=== PATIENT | female | born 1940 | race Caucasian/White ===

== ENCOUNTER 2016-06-25 12:09 | Outpatient (CLI) | payer MEDICARE, OTHER ==
[~2016-06-25] VITALS: Ht 162.6 cm; Wt 64.5 kg
--- NOTE | ~2016-06-25 | HEMODYNAMI ---
PATIENT:FERMÍN WINSLOW MEDICAL RECORD: [id number] : 44 LOCATION:[facility] ADMISSION DATE: 06/25/16 Generatedon:06/25/201615:18 Patient name: FERMÍN WINSLOW Patient #: [id number] SSN: DO B: 1940 Date of study: 06/25/2016 Page: Of Hemodynamic Procedure Report Patient Data Patient Demographics Procedure consent was obtained First Name: FERMÍN Gender: Female Last Name: GOLDY : 1940 Middle Initial: A Age: 76 year(s) Patient #: [id number] Race: Additional ID: [id number] Contact details Address: [address] [place] [address] State: [place] City: [facility] Zip code: [address] Past Medical History Allergies Allergen Reaction Date Comments Reported Other allergy 09/22/2014 Kapidex, Doxycyline Other allergy 06/25/2016 Oxycycline, Dexlansopazole, Isosorbide, Brilinta Admission Admission Data Admission Date: 06/25/2016 Admission Time: 12:09 Lab Results Lab Result Date: 06/25/2016 Lab Result Time: 0:00 Biochemistry Name Units Result Min Max Creatinine mg/dl 1.3 --(---*)-- 0.6 1.3 CBC Name Units Result Min Max Hemoglobin g/dl 14.3 --(*---)-- 13.5 17.5 Procedure Procedure Types Cath Procedure Diagnostic Procedure LHC LHC w/Coronaries Procedure Description Procedure Date Procedure Date: 06/25/2016 Procedure Start Time: 15:00 Procedure End Time: 15:18 Procedure Staff Name Function Aniket Soto MD Performing Physician Sage Aguila RT Scrub Irma Collins RN Nurse Oscar Hopkins RT Host And Hostess Jesika Harley RT Monitor Procedure Data Cath Procedure Fluoroscopy Diagnostic fluoroscopy Total fluoroscopy Time: 2.5 time: 2.5 min min Diagnostic fluoroscopy Total fluoroscopy dose: 336 dose: 336 mGy mGy Contrast Material Contrast Material Type Amount (ml) Isovue 300 61 Entry Location Entry Primary Successful Side Size Upsize Upsize Entry Closure Mares ccessful Closure Location (Fr) 1 (Fr) 2 (Fr) Remarks Device Remarks Femoral Right 5 Fr Manual vein Compression Femoral Right 5 Fr Exoseal artery Estimated blood loss: 5 ml Diagnostic catheters Device Type Used For End Catheter Placement Cordis 5Fr JL 4.0 Left Coronary Catheter (MP) Angiography Cordis 5Fr 3DRC Catheter Right Coronary (MP) Angiography Cordis 5Fr Pigtail LV Angiography Catheter (MP) Procedure Complications No complications Procedure Medications Medication Administration Route Dosage Oxygen NC 2 l/min Heparin Flush Bag added to field 2 bags (1000units/500ml NS) Lidocaine 2% added to field 20 Benadryl I.V. 50 mg Versed I.V. 1 mg Fentanyl I.V. 50 mcg Versed I.V. 1 mg Fentanyl I.V. 50 mcg Versed I.V. 1 mg Fentanyl I.V. 50 mcg Hemodynamics Rest Heart Rate: 50 (bpm) Pressure Samples Time Site Value (mmHg) Purpose Heart Use Rate(bpm) 15:11 LV 109/-1,14 EDP 53 15:12 AO 101/44(66) Pullback 51 15:12 LV 106/-1,15 Pullback 51 Gradients Valve Time Site 1 Site 2 Mean SEP/DFP Peak To Heart Use (mmHg) (sec/min) Peak Rate (mmHg) (bpm) Aortic 15:12 LV AO 24 15 5 51 106/-1,15 101/44(66) Calculations Valve P-P Mean Valve Index Valve Source Name Gradient Area Flow (cm2) Aortic 5 24 5 24 Snapshots Pre Cath Intra NCS Post Cath Vital Signs Time Heart Resp SPO2 NIBP (mmHg) Rhythm Pain Sedation Rate (ipm) (%) Status Level (bpm) 14:53:26 43 12 100 Measuring SB 0 (11) 10(A) , No pain 14:53:58 55 22 100 159/69(124) SB 0 (11) 10(A) , No pain 14:58:57 51 33 100 Measuring SB 0 (11) 10(A) , No pain 14:59:20 51 17 100 143/65(111) SB 0 (11) 10(A) , No pain 15:03:30 50 16 95 104/53(83) SB 0 (11) 9(A) , No pain 15:07:42 48 14 96 94/42(72) SB 0 (11) 9(A) , No pain 15:11:50 50 16 97 98/41(72) SB 0 (11) 9(A) , No pain 15:15:57 53 16 97 96/48(65) SB 0 (11) 9(A) , No pain Medications Time Medication Route Dose Verified Delivered Reason Notes Effec tiveness by by 14:55:08 Oxygen NC 2 Aniket Irma Per l/min Charles Collins RN physician 14:55:17 Heparin Flush added 2 Aniket Aniket used for Bag to bags Charles Soto MD procedure (1000units/500ml field NS) 14:55:27 Lidocaine 2% added 20ml Aniket Aniket used for to vial Charles Soto MD procedure field 14:55:33 Benadryl I.V. 50 mg Aniket Irma Per Charles Collins RN physician 14:57:02 Versed I.V. 1 mg Aniket Irma for Charles Collins RN sedation 14:57:08 Fentanyl I.V. 50 Aniket Irma for mcg Charles Collins RN sedation 14:59:04 Versed I.V. 1 mg Aniket Irma for Charles Collins RN sedation 14:59:07 Fentanyl I.V. 50 Aniket Irma for mcg Charles Collins RN sedation 15:00:55 Fentanyl I.V. 50 Aniket Irma for mcg Charles Collins RN sedation 15:02:08 Versed I.V. 1 mg Aniket Irma for Charles Collins RN sedation Procedure Log Time Note 14:34:01 Diagnostic Cath Status : Elective 14:34:27 Oscar Hopkins RT(R) sent for patient. Start room use. 14:34:28 Time tracking: Regular hours 14:34:32 Plan of Care:Hemodynamics will remain stable., Cardiac rhythm will remain stable., Comfort level will be maintained., Respiratory function will remain adequate., Patient/ family verbilizes understanding of procedure., Procedure tolerated without complication., Recovers from procedure without complications.. 14:34:36 Use device set Femoral Dx 14:34:37 Acist Syringe opened to sterile field. 14:34:38 Bag Decanter opened to sterile field. 14:34:38 Cardinal Cath Pack opened to sterile field. 14:34:39 Terumo 5Fr [place] Sheath opened to sterile field. 14:34:39 St Naveed 260cm J .035 wire opened to sterile field. 14:34:40 Acist Hand Control opened to sterile field. 14:34:41 Acist Manifold opened to sterile field. 14:34:41 Cordis Infinity 5Fr Multipack catheter opened to sterile field. 14:34:42 Tegaderm 4 x 4 opened to sterile field. 14:44:40 Patient received from Outpatients to CCL 1 Alert and oriented. Tansferred to table in Supine position. 14:44:43 Warm blankets applied, and nicole hugger turned on for patient comfort. 14:44:43 Correct patient and procedure confirmed by team. 14:44:44 Signed procedure consent form obtained from patient. 14:44:45 ECG and BP/O2 sat monitors applied to patient. 14:44:45 Full Disclosure recording started 14:51:36 Vital chart was started 14:53:30 Rhythm: sinus bradycardia 14:53:45 H&P Date Dictated: 06/19/2016 Within 30 days and on chart., H&P Addendum completed by physician on day of procedure. (MUST COMPLETE FOR ALL OUTPATIENTS). 14:53:47 Pre-procedure instructions explained to patient. 14:53:47 Pre-op teaching completed and patient verbalized understanding. 14:53:50 Family in waiting room. 14:53:52 Patient NPO since Midnight. 14:54:41 Patient allergic to Other allergyOxycycline, Dexlansopazole, Isosorbide, Brilinta 14:54:47 Is the patient allergic to Iodine/contrast media? No. 14:54:50 Is patient on blood thinner?No 14:54:54 ACC The patient was administered the following blood thiners within the last 24 hours: None 14:54:57 Previous problem with sedation/anesthesia? No ? 14:54:59 Snore? Yes 14:55:00 Sleep apnea? No 14:55:01 Sleep apnea? No 14:55:03 Deviated septum? No 14:55:04 Opens mouth fully? Yes 14:55:04 Sticks out tongue? Yes 14:55:06 Airway obstruction? No ? 14:55:07 Dentures? No ? 14:55:08 Oxygen 2 l/min NC was given by Irma Collins RN; Per physician; 14:55:10 Pre procedure: right dorsailis pedis pulse 2+ Normal; easily identifiable; not easily obliterated 14:55:12 Patient pain scale 0/10 ?. 14:55:17 Heparin Flush Bag (1000units/500ml NS) 2 bags added to field was given by Aniket Soto MD; used for procedure; 14:55:21 IV patent on arrival in left forearm with 0.9% NaCl at [facility]. 14:55:27 Lidocaine 2% 20ml vial added to field was given by Aniket Soto MD; used for procedure; 14:55:33 Benadryl 50 mg I.V. was given by Irma Collins RN; Per physician; 14:55:57 Lab Result : Creatinine 1.3 mg/dl 14:55:57 Lab Result : Hemoglobin 14.3 g/dl 14:56:01 Lab results completed and on chart. 14:56:03 Right groin area was prepped with chlora-prep and draped in sterile fashion 14:56:04 Alarms reviewed by R. N. 14:56:05 Sharps counted by scrub and verified by R.N. 14:56:13 Final Timeout: patient, procedure, and site verified with staff and physician. All members of the team are in agreement. 14:56:16 Right groin site verified by team. 14:56:20 Physical assessment completed. ASA score P 2 - A patient with mild systemic disease as per Aniket Soto MD. 14:56:23 Sedation plan: IV Moderate Sedation Versed, Fentanyl 14:57:02 Versed 1 mg I.V. was given by Irma Collins RN; for sedation; 14:57:08 Fentanyl 50 mcg I.V. was given by Irma Collins RN; for sedation; 14:59:04 Versed 1 mg I.V. was given by Irma Collins RN; for sedation; 14:59:07 Fentanyl 50 mcg I.V. was given by Irma Collins RN; for sedation; 14:59:34 Procedure started. 15:00:08 Local anesthetic to right femoral artery with Lidocaine 2% by Aniket Soto MD.INITIAL ACCESS ONLY 15:00:26 Zero performed for pressure channel P1 15:00:55 Fentanyl 50 mcg I.V. was given by Irma Collins RN; for sedation; 15:02:08 Versed 1 mg I.V. was given by Irma Collins RN; for sedation; 15:03:18 A 5 Fr sheath was inserted into the Right Femoral vein 15:04:44 Baseline sample Acquired. 15:05:34 Terumo 5Fr [place] Sheath opened to sterile field. 15:05:46 A 5 Fr sheath was inserted into the Right Femoral artery 15:06:29 A Cordis 5Fr JL 4.0 Catheter (MP) was advanced over the wire and used for Left Coronary Angiography. 15:07:46 Catheter removed. 15:08:15 A Cordis 5Fr 3DRC Catheter (MP) was advanced over the wire and used for Right Coronary Angiography. 15:10:42 Catheter removed. 15:10:46 A Cordis 5Fr Pigtail Catheter (MP) was advanced over the wire and used for LV Angiography. 15:11:19 LV hemodynamics recorded. 15:11:21 LV gram done using DURBIN 15:11:34 EF : 50 % 15:11:37 Injector settings: Ml/sec: 10, Volume: 20, 15:13:43 Catheter removed. 15:13:54 Cordis 5Fr Exoseal opened to sterile field. 15:14:09 Sheath removed intact; hemostasis achieved with Exoseal to the Right Femoral artery. 15:14:32 Sheath removed intact; hemostasis achieved with Manual Compression to the Right Femoral vein. 15:14:34 Procedure ended.(Physican Out) 15:14:48 Fluoroscopy time 02.50 minutes. 15:14:55 Flurop Dose total: 336 15:14:55 Fluoroscopy dose: 336 mGy 15:15:02 Contrast amount:Isovue 300 61ml. 15:15:03 Sharps counted by scrub and verified by R.N. 15:15:05 Insertion/operative site no bleeding no hematoma. 15:15:09 Post-op/insertion site Right Femoral artery dressed using a 4 x 4 and Tegaderm. 15:15:12 Post right femoral artery:stable, clean and dry 15:15:14 Post Procedure Pulses reassessed and unchanged 15:15:19 Post-procedure physical assessment completed. ASA score P 2 - A patient with mild systemic disease as per Aniket Soto MD. 15:15:21 Post procedure rhythm: unchanged. 15:15:23 Estimated blood loss: 5 ml 15:15:24 Post procedure instruction explained to patient.Patient verbalizes understanding. 15:15:24 Patient needs reinforcement of post procedure teaching. 15:15:35 Procedure Complication : No complications 15:15:39 See physician's report for complete and final results. 15:16:04 Procedure and supply charges have been captured, reviewed, submitted and are correct. 15:17:57 Vital chart was stopped 15:18:00 Report given to Outpatients. 15:18:03 Patient transfered to Outpatients with Stretcher. 15:18:14 Procedure ended. 15:18:14 Full Disclosure recording stopped 15:18:21 End room use (Document Last) Device Usage Item Name Manufacture Quantity Catalog Hospital Part Current Minimal Lo t# / Number Charge Number Stock Stock Serial# Code Acist Acist 1 01637 614127 228414 665048 20 Syringe Medical Systems Inc Bag Microtek 1 2002S 496724 38812 962239 5 Decanter Medical Inc. Cardinal Cardinal 1 [id number] 027165 62248 057423 5 Cath Pack Health Terumo Terumo 2 WOL888 449815 805959 671111 [address] [place] Sheath [address] Naveed St Naveed 1 853943 864810 117732 539230 30 260cm J .035 wire Acist Acist 1 75040 826930 267519 512762 5 Hand Medical Control Systems Inc Acist Acist 1 60760 029830 762820 186117 5 Manifold Medical Systems Inc Cordis Cardinal 1 [id number] 531945 06675 046965 30 InfinHuodongxing Health 5Fr Multipack catheter Tegaderm 3M 1 1626W 978017 951310 086863 5 4 x 4 Cordis Cardinal 1 956101 5 5Fr JL Health 4.0 Catheter (MP) Cordis Cardinal 1 284536 5 5Fr 3DRC Health Catheter (MP) Cordis Cardinal 1 082209 5 5Fr Health Pigtail Catheter (MP) Cordis Cardinal 1 EX500 179113 411084 033101 10 5Fr Health Exoseal Signature Audit Blairs Stage Time Signature Unsigned Intra-Procedure 06/25/2016 Jesika 3:18:38 PM Counts RT(R) Signatures Monitor : Jesika Signature : Counts RT Date : Time : [address] [place] [address]
[~2016-06-25 12:09] MED LIST: ALTOPREV40 MG PO; ASPIRIN 81 MG E81 MG PO; ASPIRIN325 MG PO; BRILINTA90 MG PO; CALCIUM CITRATE1 TAB PO; CELEXA40 MG PO; COREG 3.1253.125 MG PO; CYCLOBENZAPRINE10 MG PO; DEPAKOTE125 MG PO; DIOVAN160 MG PO; FLEXERIL10 MG PO; FOLATE0.4 MG PO; FOLIC ACID1 MG PO; FOSAMAX 70 MG T70 MG PO; IMDUR30 MG PO; KLONOPIN0.5 MG PO; KLONOPIN1 MG PO; LOZOL 2.5 MG T2.5 MG PO; MEDROL4 MG; MEVACOR20 MG PO; MOBIC7.5 MG PO; NEURONTIN 300300 MG PO; NITROSTAT0.4 MG SL; PAMELOR 25 MG C25 MG PO; PHENERGAN25 M1 PO; PLAVIX75 MG PO; PRAVACHOL20 MG PO; PREDNISONE10 MG PO; ULTRAM50 MG PO; VITAMIN B COMPL1 TA1 PO; ZANTAC150 MG PO
[2016-06-25 12:57] LABS: ANION GAP 12.4 mmol/L (8-16); CALCIUM 9.1 mg/dL (8.5-10.1); CARBON DIOXIDE 28.6 mmol/L (21.0-32.0); CREATININE - SERUM 1.3 mg/dL (0.6-1.3)
[2016-06-25 13:06] LABS: BASOPHILS 0.6 % (0.0-2.0); EOSINOPHILS 3.6 % (0-7); HEMATOCRIT 40.8 % (36.0-48.0); HEMOGLOBIN 14.3 g/dL (12-16); IMMATURE GRANULOCYTES 0.2 % (0-5); MCH 32.9 pg (26.0-34.0); MEAN PLATELET VOLUME 9.7 fL (7.4-10.4); MONOCYTES 5.8 % (2-11); NEUTROPHILS 59.8 % (40-80); PLATELET COUNT 194 10x3/uL (130-400); RBC 4.34 10x6/uL (4.00-5.40); RDW 13.4 % (11.5-14.5); WBC 8.9 10x3/uL (4.8-10.8)
[2016-06-25] MEDS ORDERED: BAYER CHEWABLE81 MG PO (14:06)
[2016-06-25] MEDS ORDERED: REXULTI1 MG PO (14:08)
[2016-06-25] MEDS ORDERED: CENTRUM COMPLE1 EACH PO (14:09)
[2016-06-25] MEDS ORDERED: VITAMIN B-12500 MC1 PO (14:10)
[2016-06-25] MEDS ORDERED: PROBIOTIC1 EAC1 PO (14:10)
[2016-06-25] MEDS ORDERED: LOZOL 2.5 MG T2.5 MG PO (14:11)
[2016-06-25] MEDS ORDERED: MAGNESIUM OXID500 MG PO (14:11)
[2016-06-25] MEDS ORDERED: MELATONIN 10 M1 EACH PO (14:12)
[2016-06-25] MEDS ORDERED: XANAX0.25 MG PO (14:13)
[2016-06-25] MEDS ORDERED: TESSALON PERLE100 MG PO (14:13)
[2016-06-25 14:19] VITALS: BP 146/72; Ht 162.6 cm; Wt 64.5 kg
--- NOTE | 2016-06-25 15:51 | NUR ---
VS TAKEN AND PLACED ON POSY OP SHEET
--- NOTE | 2016-06-25 18:59 | NUR ---
1745 IV DC WITH CATHER TIP INTACT
--- NOTE | 2016-07-15 15:45 | OP ---
PATIENT NAME: FERMÍN WINSLOW MEDICAL RECORD: [id number] :44 LOCATION:D.[facility] ADMISSION DATE: SURGEON: PATRICIO REGAN M.D. DATE OF OPERATION: 06/25/2016 REFERRING PHYSICIAN: Dr. Solis Maddox. PROCEDURES PERFORMED: 1. Selective coronary angiography. 2. Left heart catheterization with ventriculogram. INDICATION: A 76-year-old woman with history of coronary artery disease presents with accelerating angina. Recent stress test revealed anterior wall ischemia. EQUIPMENT USED: A 5-[place] JL4, Bryson right, pigtail catheter. TECHNIQUE: A 5-[place] sheath was inserted in retrograde fashion in the right common femoral artery. Next, selective coronary angiography was performed in standard 5-[place] Islander JL4 and Bryson right. Left heart catheterization was performed using pigtail catheter. CORONARY ANATOMY: 1. Left main: Left main trunk is moderate in caliber. It gives rise to the LAD and circumflex. There is no obstruction. 2. LAD: This vessel is moderate in caliber. It is 100% occluded beyond the origin of the first diagonal branch. This is a chronic occlusion. 3. Circumflex: This vessel is moderate in caliber. It supplies the lateral branch proximal segment. The circumflex and lateral branch have mild irregularities. 4. Right coronary artery: This vessel is large in caliber and dominant. The proximal vessel has been stented. This stent is widely patent. Distal vessel has been stented. This stent is widely patent as well. There is no evidence of any restenosis. 5. Left ventricle: Left ventricle is normal in size. The apex is mildly hypokinetic. Estimated ejection fraction is in the order 50%. IMPRESSION: 1. A 100% occlusion of the LAD, which is a chronic occlusion. 2. Widely patent stents in the right coronary artery without evidence of restenosis. RECOMMENDATIONS: At this point, we will continue with medical management. TRANSINT:[id number] Voice Confirmation ID: [id number] DOCUMENT ID: [id number] PATRICIO REGAN M.D. at 1545 CC: [id number] DICTATION DATE: 06/25/16 1520 ELECTRIC STOVE MECHANIC: 06/25/16 1540 DEP CLI 06/25/16 [place] [id number] [place] [id number]
== END 2016-06-25 18:00 | disposition home or self-care (01) ==
LOC: D.CATH 12:09
PROVIDERS: Internal Medicine Cardiovascular Disease
DX: I25.110 Atherosclerotic heart disease of native coronary artery with unstable angina pectoris (principal); I25.82 Chronic total occlusion of coronary artery; Z95.5 Presence of coronary angioplasty implant and graft

== ENCOUNTER 2017-03-28 09:00 | Outpatient (CLI) | payer MEDICARE, OTHER ==
[2016-06-25 14:19] VITALS: BMI 24.4
[~2017-03-28 09:00] MED LIST changes: +BAYER CHEWABLE81 MG PO; +CENTRUM COMPLE1 EACH PO; +MAGNESIUM OXID500 MG PO; +MELATONIN 10 M1 EACH PO; +PROBIOTIC1 EAC1 PO; +REXULTI1 MG PO; +TESSALON PERLE100 MG PO; +VITAMIN B-12500 MC1 PO; +XANAX0.25 MG PO
== END 2017-03-28 23:59 | disposition home or self-care (01) ==
LOC: D.MAMMO 09:00
DX: Z12.31 Encounter for screening mammogram for malignant neoplasm of breast (principal)

== ENCOUNTER → 2017-12-23 12:27 | Outpatient (CLI) | payer MEDICARE, OTHER ==
[2016-06-25 14:19] VITALS: BMI 24.4
== END | disposition home or self-care (01) ==
LOC: D.MRI 12:27
DX: M54.5 Low back pain (principal); M54.12 Radiculopathy, cervical region

== ENCOUNTER → 2019-02-05 12:42 | Outpatient (CLI) | payer MEDICARE, OTHER ==
[2016-06-25 14:19] VITALS: BMI 24.4
== END | disposition home or self-care (01) ==
LOC: D.HCCARDIO 12:42
PROVIDERS: ATTEND Internal Medicine Cardiovascular Disease
DX: R01.1 Cardiac murmur, unspecified (principal)

== ENCOUNTER 2019-03-03 09:00 | Outpatient (CLI) | payer MEDICARE, OTHER ==
[2016-06-25 14:19] VITALS: BMI 24.4
== END 2019-03-03 10:00 | disposition home or self-care (01) ==
LOC: D.MAMMO 09:00
PROVIDERS: ATTEND Family Medicine
DX: Z12.31 Encounter for screening mammogram for malignant neoplasm of breast (principal)

== ENCOUNTER 2019-09-24 14:38 | Inpatient (IN) | payer MEDICARE, OTHER ==
[~2019-09-24] VITALS: Ht 162.6 cm; Wt 85.1 kg
[2019-09-24 15:10] LABS: APTT 33.8 SECONDS (22.8-39.4); INR 0.96 (0.85-1.17); PROTIME 12.8 SECONDS (11.6-15.0)
[2019-09-24 15:14] LABS: BASOPHILS 0.3 % (0-2); EOSINOPHILS 1.7 % (0-7); HEMATOCRIT 31.3 % (36.0-48.0); HEMOGLOBIN 10.3 g/dL (12-16); IMMATURE GRANULOCYTES 0.5 % (0-5); LYMPHOCYTES 13.6 % (15-50); MCH 27.3 pg (26.0-34.0); MCHC 32.9 g/dL (31.0-37.0); MEAN PLATELET VOLUME 8.2 fL (7.4-10.4); MONOCYTES 5.3 % (2-11); NEUTROPHILS 78.6 % (40-80); PLATELET COUNT 536 10x3/uL (130-400); RBC 3.77 10x6/uL (4.00-5.40); RDW 13.4 % (11.5-14.5); WBC 19.6 10x3/uL (4.8-10.8)
[2019-09-24 15:27] LABS: CALC OSMOLALITY 261 mosm/kg (275-300); CALCIUM 9.4 mg/dL (8.5-10.1); CHLORIDE - SERUM 94 mmol/L (98-107); CREATININE - SERUM 0.7 mg/dL (0.6-1.3); GLUCOSE 126 mg/dL (74-106); POTASSIUM - SERUM 3.7 mmol/L (3.5-5.1); SODIUM 128 mmol/L (136-145); UREA NITROGEN 20 mg/dL (7-18); eGFR NON AFRICAN AMERICAN 86 mL/min (90-120)
[2019-09-24 15:46] LABS: ALKALINE PHOSPHATASE 90 U/L (30-120); ALT (SGPT) 21 U/L (10-68); BILIRUBIN - TOTAL 0.31 mg/dL (0.2-1.3); CREATINE KINASE 56 UL (21-215); THYROID STIMULATING HORMONE 1.94 uIU/mL (0.36-3.74)
[2019-09-24 16:09] LABS: ALBUMIN 2.7 g/dL (3.4-5.0); CKMB 1.5 U/L (0.0-3.6); MAGNESIUM - SERUM 1.8 mg/dL (1.8-2.4); TROPONIN-I < 0.017 ng/mL (0.000-0.060)
--- NOTE | 2019-09-24 19:20 | NUR ---
PT ALREADY IN ROOM AT TIME OF SHIFT CHANGE. QUICK STARTED PT DURING BEDSIDE SHIFT REPORT. REVIEWED HOME MEDS AND HISTORY. RIGHT UPPER EXT WEAKNESS WHILE RIGHT LOWER EXT ONLY SLIGHTLY WEAK. COMPLETE ASSESSMENT PER FLOW-SHEET. VITALS SIGNS STABLE. SOME HOME MEDS WERE CONTINUED BEFORE LIST COULD BE UPDATED WITH PT AND NEED TO BE RE-RECONCILED BY PHYSICIAN OR HEALTH SERVICES COORDINATOR. PT REFUSED TELEMETRY. NO OTHER NEEDS. WILL CONTINUE TO MONITOR.
[2019-09-24 20:00] VITALS: BP 136/91
[2019-09-24] MEDS ORDERED: ECOTRIN325 MG PO (22:10)
[2019-09-24] MEDS ORDERED: BACLOFEN10 MG PO (22:37)
[2019-09-24] MEDS ORDERED: LIPITOR40 MG PO (22:38)
[2019-09-25 00:10] VITALS: BMI 18.9
[2019-09-25 04:00] VITALS: BP 101/42
[2019-09-25 04:09] LABS: BILIRUBIN NEGATIVE (NEGATIVE); GLUCOSE NEGATIVE (NEGATIVE); KETONE NEGATIVE (NEGATIVE); NITRITE NEGATIVE (NEGATIVE); UROBILINOGEN NORMAL (NORMAL)
[2019-09-25 06:58] LABS: BASOPHILS 0.1 % (0-2); EOSINOPHILS 0.1 % (0-7); HEMATOCRIT 28.6 % (36.0-48.0); HEMOGLOBIN 9.2 g/dL (12-16); IMMATURE GRANULOCYTES 0.3 % (0-5); LYMPHOCYTES 7.9 % (15-50); MCH 26.8 pg (26.0-34.0); MCHC 32.2 g/dL (31.0-37.0); MCV 83.4 fL (80.0-100.0); MONOCYTES 0.8 % (2-11); NEUTROPHILS 90.8 % (40-80); PLATELET COUNT 499 10x3/uL (130-400); RBC 3.43 10x6/uL (4.00-5.40); RDW 13.4 % (11.5-14.5)
[2019-09-25 07:08] LABS: WBC 11.8 10x3/uL (4.8-10.8)
[2019-09-25 07:09] LABS: % SATURATION 3 % (15-55); IRON 12 ug/dl (35-150); TOTAL IRON BIND CAPACITY 310 ug/dl (260-445); UNSAT IRON BIND CAPACITY 298 ug/dl (150-375)
[2019-09-25 07:14] LABS: INR 0.98 (0.85-1.17)
[2019-09-25 07:53] LABS: CALCIUM 8.4 mg/dL (8.5-10.1); CHLORIDE - SERUM 94 mmol/L (98-107); CREATININE - SERUM 0.7 mg/dL (0.6-1.3); FERRITIN 10 ng/mL (3-244); GLUCOSE 152 mg/dL (74-106); MAGNESIUM - SERUM 1.8 mg/dL (1.8-2.4); PHOSPHOROUS 3.2 mg/dL (2.5-4.9); POTASSIUM - SERUM 3.4 mmol/L (3.5-5.1); PRO BNP 368 pg/mL (0-450); SODIUM 123 mmol/L (136-145); eGFR NON AFRICAN AMERICAN 86 mL/min (90-120)
[2019-09-25 07:54] LABS: CALC OSMOLALITY 251 mosm/kg (275-300); UREA NITROGEN 14 mg/dL (7-18)
--- NOTE | 2019-09-25 09:05 | NUR ---
RESTING IN BED, NO DISTRESS NOTED, STATES THAT SHE HAS NO USE OF RIGHT ARM, AND RIGHT LEG IS WEAK, ASSISTED TO BR X1
[2019-09-25 14:05] VITALS: BP 126/59
[2019-09-25 17:00] VITALS: BP 97/40
[2019-09-25 20:00] VITALS: BP 128/56
[2019-09-26] VITALS: BP 100/44
[2019-09-26 04:00] VITALS: BP 107/43
[2019-09-26 06:01] LABS: BASOPHILS 0.1 % (0-2); EOSINOPHILS 0 % (0-7); HEMATOCRIT 24.9 % (36.0-48.0); HEMOGLOBIN 7.9 g/dL (12-16); IMMATURE GRANULOCYTES 0.5 % (0-5); LYMPHOCYTES 5.7 % (15-50); MCH 26.6 pg (26.0-34.0); MCHC 31.7 g/dL (31.0-37.0); MCV 83.8 fL (80.0-100.0); MEAN PLATELET VOLUME 8.1 fL (7.4-10.4); MONOCYTES 2.6 % (2-11); NEUTROPHILS 91.1 % (40-80); PLATELET COUNT 498 10x3/uL (130-400); RBC 2.97 10x6/uL (4.00-5.40); RDW 13.5 % (11.5-14.5)
[2019-09-26 06:06] LABS: ANION GAP 11.9 mmol/L (8-16); CALCIUM 8.3 mg/dL (8.5-10.1); CREATININE - SERUM 0.8 mg/dL (0.6-1.3); PHOSPHOROUS 3.4 mg/dL (2.5-4.9); POTASSIUM - SERUM 3.9 mmol/L (3.5-5.1)
[2019-09-26 06:10] LABS: WBC 18.7 10x3/uL (4.8-10.8)
--- NOTE | 2019-09-26 08:23 | NUR ---
RESTING IN BED, NO DISTRESS NOTED, SKIN WARM AND DRY, WEAKNESS CONT TO RIGHT ARM, SL IN PLACE, CONT TO MONITOR FOR PAIN AND NEW WEAKNESS
[2019-09-26 08:26] VITALS: BP 109/49
--- NOTE | 2019-09-26 09:30 | MORECARE ---
CASE MANAGEMENT DISCHARGE SUMMARY PATIENT: FERMÍN WINSLOW UNIT: [id number] ADM DATE: 09/24/19 AGE: 79 : 42 SEX: F ROOM/BED: D.2207 AUTHOR: JESSICA RANDOLPH PHYSICIAN: REFERRING PHYSICIAN: MARYANNE DELEON MD DATE OF SERVICE: 09/26/19 Discharge Plan Patient Name: FERMÍN WINSLOW Facility: [facility]:[place] : 1940 Planned Disposition: Home Anticipated Discharge Date: Discharge Date: Expected LOS: Initial Reviewer: [email or web address] Initial Review Date: 09/24/2019 Generated: 09/26/19 10:30 am Patient Name: FERMÍN WINSLOW Page [id number] at 0930 All edits/amendments must be made on the electronic document DICTATION DATE: 09/26/19929 NURSE TECH: GEOVANNI 09/26/19929 RPT#: [id number] DC DATE: STATUS: ADM IN [facility] [address] [place] [address] END OF REPORT
--- NOTE | 2019-09-26 09:37 | MORECARE ---
CASE MANAGEMENT DISCHARGE SUMMARY PATIENT: FERMÍN WINSLOW UNIT: [id number] ADM DATE: 09/24/19 AGE: 79 : 42 SEX: F ROOM/BED: D.2207 AUTHOR: JESSICA RANDOLPH PHYSICIAN: REFERRING PHYSICIAN: MARYANNE DELEON MD DATE OF SERVICE: 09/26/19 Discharge Plan Patient Name: FERMÍN WINSLOW Facility: [facility]:[place] : 1940 Planned Disposition: Home Anticipated Discharge Date: Discharge Date: Expected LOS: Initial Reviewer: [email or web address] Initial Review Date: 09/24/2019 Generated: 09/26/19 10:37 am DCPIA - Discharge Planning Initial Assessment Updated by [email or web address]: Indiana Bautista on 09/26/19 9:31 am * Is the patient Alert and Oriented? Yes * How many steps to enter\exit or inside your home? * PCP MEHRAN * [facility] - IN [place] * Preadmission Environment Home Alone * ADLs Independent * Other Equipment SHOWER CHAIR, WALKER, CANE * List name and contact numbers for known caregivers / representatives who currently or will assist patient after discharge: JOSH WINSLOW - DAUGHTER- [phone] MISTY WINSLOW - SON - [phone] * Verbal permission to speak to the caregivers and representatives has been obtained from the patient. Yes * Community resources currently utilized None * Additional services required to return to the preadmission environment? No * Can the patient safely return to the preadmission environment? Yes * Has this patient been hospitalized within the prior 30 days at any hospital? No Last DP export: 09/26/19 8:30 am Patient Name: FERMÍN WINSLOW Page [id number] at 0937 All edits/amendments must be made on the electronic document DICTATION DATE: 09/26/19936 PATIENT CASE MANAGER: GEOVANNI 09/26/19936 RPT#: [id number] DC DATE: STATUS: ADM IN [facility] [address] [place] [address] END OF REPORT
--- NOTE | 2019-09-26 09:45 | MORECARE ---
CASE MANAGEMENT DISCHARGE SUMMARY PATIENT: FERMÍN WINSLOW UNIT: [id number] ADM DATE: 09/24/19 AGE: 79 : 42 SEX: F ROOM/BED: D.2207 AUTHOR: TOMASA,DOC PHYSICIAN: REFERRING PHYSICIAN: MARYANNE DELEON MD DATE OF SERVICE: 09/26/19 Discharge Plan Patient Name: FERMÍN WINSLOW Facility: [facility]:[place] : 1940 Planned Disposition: Home Anticipated Discharge Date: Discharge Date: Expected LOS: Initial Reviewer: [email or web address] Initial Review Date: 09/24/2019 Generated: 09/26/19 10:45 am Comments DCP- Discharge Planning Updated by [email or web address]: Indiana Bautista on 09/26/19 8:[address] LATE ENTRY 09/25/19 Patient Name: FERMÍN WINSLOW Admission Status: ER Accout number: [id number] Admission Date: 09-24-2019 : 1940 Admission Diagnosis: Attending: STELLA Current LOS: 1 Anticipated DC Date: Planned Disposition: Home Primary Insurance: MEDICARE A & B Discharge Planning Comments: CM met with patient to complete initial dc planning assessment. CM educated patient on the CM role and verbal consent given by patient to complete assessment. Patient lives at home alone where she is independent with her care. At discharge patient plans to return home and feels this is a safe discharge. CM discussed availability of home health, rehab services, and medical equipment. Patient has a walker, cane and shower chair if needed. Patient states if tumor comes back cancer she wants [facility]. STEVEN completed Patient denied known discharge needs at this time. CM will continue to follow and will assist as needed with dc plans/needs. Hospital Manager: Indiaan Bautista DCPIA - Discharge Planning Initial Assessment Updated by [email or web address]: Indiana Bautista on 09/26/19 9:31 am * Is the patient Alert and Oriented? Yes * How many steps to enter\exit or inside your home? * PCP MEHRAN * [facility] - IN [place] * Preadmission Environment Home Alone * ADLs Independent * Other Equipment SHOWER CHAIR, WALKER, CANE * List name and contact numbers for known caregivers / representatives who currently or will assist patient after discharge: JOSH WINSLOW - DAUGHTER- [phone] MISTY WINSLOW - SON - [phone] * Verbal permission to speak to the caregivers and representatives has been obtained from the patient. Yes * Community resources currently utilized None * Additional services required to return to the preadmission environment? No * Can the patient safely return to the preadmission environment? Yes * Has this patient been hospitalized within the prior 30 days at any hospital? No Last DP export: 09/26/19 8:37 am Patient Name: FERMÍN WINSLOW Page [phone] at 0945 All edits/amendments must be made on the electronic document DICTATION DATE: 09/26/19944 PUMP PRESS OPERATOR: GEOVANNI 09/26/19944 RPT#: [id number] DC DATE: STATUS: ADM IN [facility] [address] [place] [address] END OF REPORT
--- NOTE | 2019-09-26 11:22 | NUR ---
TAKEN TO CT PER W/C
[2019-09-26 13:09] VITALS: BP 157/74
[2019-09-26 16:05] VITALS: BP 111/58
--- NOTE | 2019-09-26 18:12 | NUR ---
RESTING IN BED, NO DISTRESS NOTED, CONT TO HAVE WEAKNESS TO RIGHT ARM AND SLIGHT WEAKNESS TO RIGHT LEG, CONT TO MONITOR SYMPTOMS
[2019-09-26 20:00] VITALS: BP 107/43
[2019-09-27] VITALS (10 sets, daily range): BP systolic 91–126; BP diastolic 30–61
[2019-09-27 04:57] LABS: HEMATOCRIT 21.8 % (36.0-48.0); IMMATURE GRANULOCYTES 1.5 % (0-5); MCH 26.5 pg (26.0-34.0); MCHC 31.2 g/dL (31.0-37.0); MCV 84.8 fL (80.0-100.0); MEAN PLATELET VOLUME 7.9 fL (7.4-10.4); PLATELET COUNT 488 10x3/uL (130-400); RBC 2.57 10x6/uL (4.00-5.40); RDW 13.8 % (11.5-14.5); WBC 25.5 10x3/uL (4.8-10.8)
[2019-09-27 04:59] LABS: HEMOGLOBIN 6.8 g/dL (12-16)
[2019-09-27 05:04] LABS: CALC OSMOLALITY 274 mosm/kg (275-300); CALCIUM 7.9 mg/dL (8.5-10.1); CARBON DIOXIDE 28.4 mmol/L (21.0-32.0); CHLORIDE - SERUM 101 mmol/L (98-107); CREATININE - SERUM 0.7 mg/dL (0.6-1.3); GLUCOSE 140 mg/dL (74-106); MAGNESIUM - SERUM 1.9 mg/dL (1.8-2.4); PHOSPHOROUS 2.1 mg/dL (2.5-4.9); SODIUM 133 mmol/L (136-145); UREA NITROGEN 33 mg/dL (7-18); eGFR NON AFRICAN AMERICAN 86 mL/min (90-120)
[2019-09-27 05:23] LABS: ANISOCYTOSIS 1+; LYMPHOCYTES 11 % (15-50); NEUTROPHILS 89 % (40-80); PLATELET ESTIMATE NORMAL; POIKILOCYTOSIS 1+
[2019-09-27 05:24] LABS: PLATELET MORPHOLOGY NORMAL PLT MORPH
--- NOTE | 2019-09-27 06:44 | NUR ---
CRITICAL HGB 6.8 CALLED TO KENROY OWENS APN. KENROY SAID TO CALL ONCOLOGY PHYSICIAN. PAGED DR. VALENTINE AND REPORTED CRITICAL LAB. ORDERED 1 UNIT PRBC'S TO BE TRANSFUSED NOW.
--- NOTE | 2019-09-27 08:24 | NUR ---
AWAKE AND ALERT. ORIENTED X3. NO C/O AT THIS TIME. REPORTS UNABLE TO SIGN BLOOD CONSENT AT THIS TIME. VERBAL AGREEMENT GIVEN WITH WITNESS PRESENT. LUNGS ARE CLEAR BILATERALLY, NO COUGH NOTED. SKIN IS INTACT WITHOUT REDNESS. SL TO RIGHT FOREARM IS PATENT WITHOUT REDNESS AT INSERTION SITE. DENIES NEED.S
--- NOTE | 2019-09-27 09:30 | NUR ---
UP TO BR WITH SBA. HAD LARGE SOFT DARK BLOODY STOOL. SKIN CARE PER SELF. POSITIONED IN BED FOR COMFORT.
--- NOTE | 2019-09-27 12:30 | NUR ---
SITTING UP IN BED EATING LUNCH. HAD SMALL AMOUNT OF LOOSE VERY BLACK STOOL. UP TO SHOWER WITH MIN ASSIST OF ONE. LINENS CHANGED PER STAFF.
[2019-09-27 13:06] LABS: APTT 31.8 SECONDS (22.8-39.4); INR 1.05 (0.85-1.17); PROTIME 13.6 SECONDS (11.6-15.0)
--- NOTE | 2019-09-27 13:30 | NUR ---
UP TO BR WITH ONE PERSON MIN ASSIST. C/O FEELING DIZZY. BP 106/52, O2 SAT 95% WILL MONITOR. POSITIONED IN BED FOR COMFORT.
--- NOTE | 2019-09-27 14:20 | NUR ---
TRANSFUSION OF PRBC INITIATED. VSS.
--- NOTE | 2019-09-27 14:35 | NUR ---
TRANSFUSION CONTINUES WITHOUT COMPLICATIONS. VSS. DR. TOPETE HERE TO VISIT. ANSWERED ALL OF PATIENTS QUESTIONS.
[2019-09-27 18:48] LABS: HEMATOCRIT 21.7 % (36.0-48.0)
[2019-09-27 18:57] LABS: HEMOGLOBIN 6.8 g/dL (12-16)
--- NOTE | 2019-09-27 19:24 | NUR ---
UP TO BSC AGAIN WITH MODERATE AMOUNT OF VERY DARK BLOODY STOOL. SKIN CARE PER SELF. DENIES NEEDS.
[2019-09-28] VITALS (16 sets, daily range): BP systolic 89–161; BP diastolic 39–78; Ht 162.6 cm; Wt 85.1 kg
--- NOTE | 2019-09-28 00:47 | NUR ---
CALL TO DR NDIAYE AT 0030 FOR HGB OF 6.8 CRITICAL LAB. NO CHANGE FROM [facility] AFTER ONE UNIT OF BLOOD GIVEN ON 7A-7P SHIFT. AWATTING CALL BACK.
[2019-09-28 02:18] LABS: HEMATOCRIT 16.9 % (36.0-48.0); HEMOGLOBIN 5.5 g/dL (12-16)
[2019-09-28 02:47] LABS: RBC 1.97 10x6/uL (4.00-5.40); WBC 38.5 10x3/uL (4.8-10.8)
[2019-09-28 02:48] LABS: BASOPHILS 0.4 % (0-2); EOSINOPHILS 0.2 % (0-7); IMMATURE GRANULOCYTES 7.7 % (0-5); LYMPHOCYTES 10.4 % (15-50); MCH 26.9 pg (26.0-34.0); MCHC 31.5 g/dL (31.0-37.0); MCV 85.3 fL (80.0-100.0); MEAN PLATELET VOLUME 9.7 fL (7.4-10.4); NEUTROPHILS 74.3 % (40-80); PLATELET COUNT 229 10x3/uL (130-400); RDW 13.8 % (11.5-14.5)
[2019-09-28 02:50] LABS: ANION GAP 12.2 mmol/L (8-16); CALCIUM 7.1 mg/dL (8.5-10.1); CARBON DIOXIDE 23.5 mmol/L (21.0-32.0); CREATININE - SERUM 0.8 mg/dL (0.6-1.3); MAGNESIUM - SERUM 1.8 mg/dL (1.8-2.4)
[2019-09-28 02:51] LABS: POTASSIUM - SERUM 4.7 mmol/L (3.5-5.1)
--- NOTE | 2019-09-28 03:02 | NUR ---
LAB CALLED WITH RBC 1.97, HBG 5.5, HCT 16.9. CALLED DR NDIAYE NEW ORDER TO GIVE 2 UNITS PRBC. ONIT ONE STARTED AT 7091
--- NOTE | 2019-09-28 07:14 | NUR ---
DR NDIAYE RETRUNED CALL AT 0224 WITH NEW ORDERS FOR RBC-1.97, HCT-6.9 HGB- 5.5 GIVE 2 UNITS OF PRBC. UNIT ONE STARTED AT 0245 COMPLETED AT 0515 WITH ADVERS REACTION NOTED AT THIS TIME. UNIT 2 STARTED AT 0546 RUNNING AT THIS TIME, WITH NO ADVERS REACTION NOTED AT THIS TIME.
--- NOTE | 2019-09-28 08:04 | NUR ---
PT RESTING QUIETLY IN BED. RESP EVEN AND UNLABORED. PT DENIES PAIN AT THIS TIME. PACKED RBC INFUSING AT THIS TIME @ 125ML/HR SITE WITHOUT REDNESS OR EDEMA. PT DENIES FURTHER NEEDS AT THIS TIME. VOICES BEING NPO SINCE MIDNIGHT FOR UPCOMING PROCEDURE. CL WITHIN REACH. ENCOURAGED TO CALL WITH NEEDS.
--- NOTE | 2019-09-28 17:34 | NUR ---
1701 BALLOON DIL DUODENAL 10, 11 AND 12 THEN BX.
--- NOTE | 2019-09-28 19:00 | NUR ---
PT RESTING IN BED. ALERT AND ORIENTED. NO SIGNS OF DISTRESS. BREATHING EVEN AND UNLABRED. IV SITE RT FA DRESSING CLEAN DRY AND INTACT. NO SIGNS OF INFECTION OR INFULTRATION. VITAL SIGNS STABLE. PT STATES NO NEEDS AT THIS TIME. SKIN CLEAN DRY AND INTACT. RT ARM WEAKNESS. WILL CONTINUE PLAN OF CARE. CALL LIGHT IN REACH. BED LOWERED AND LOCKED. BED RAILS UPX2.
[2019-09-28 19:03] LABS: HEMATOCRIT 34.8 % (36.0-48.0); HEMOGLOBIN 11.8 g/dL (12-16)
--- NOTE | 2019-09-28 21:00 | NUR ---
PT RESTING IN BED. EYES CLOSED. VITALS STABLE. WILL CONTINUE PLAN OF CARE. CALL LIGHT IN REACH. BED LOWERED AND LOCKED.
[2019-09-28 23:42] LABS: HEMATOCRIT 36.6 % (36.0-48.0); HEMOGLOBIN 12.8 g/dL (12-16)
[2019-09-29] VITALS (25 sets, daily range): BP systolic 121–159; BP diastolic 49–96
--- NOTE | 2019-09-29 | NUR ---
PT CALL LIGHT ON. NEEDS TO VOID. ASSISTED TO THE BSC WITH MINIMAL HELP. PT STAES SOME WEAKNESS. WILL CONTINUE PLAN OF CARE. CALL LIGHT IN REACH. BED LOWERED AND LOCKED. BED RAILS UPX1
--- NOTE | 2019-09-29 02:00 | NUR ---
PT RESTING IN BED. EYES CLOSED. NO SIGNS OF DISTRESS. BREATHING EVEN AND UNLABORED. WILL CONTINUE PLAN OF CARE. CALL LIGHT IN REACH. VITAL SIGNS STABLE,
[2019-09-29 03:48] LABS: ANION GAP 12.5 mmol/L (8-16); CALCIUM 7.7 mg/dL (8.5-10.1); CARBON DIOXIDE 22.8 mmol/L (21.0-32.0); CREATININE - SERUM 0.8 mg/dL (0.6-1.3); MAGNESIUM - SERUM 1.9 mg/dL (1.8-2.4); POTASSIUM - SERUM 4.3 mmol/L (3.5-5.1)
[2019-09-29 03:59] LABS: HEMATOCRIT 35.4 % (36.0-48.0); HEMOGLOBIN 12.3 g/dL (12-16); MCH 29.1 pg (26.0-34.0); MCHC 34.7 g/dL (31.0-37.0); MCV 83.7 fL (80.0-100.0); MEAN PLATELET VOLUME 8.5 fL (7.4-10.4); PLATELET COUNT 228 10x3/uL (130-400); RBC 4.23 10x6/uL (4.00-5.40); RDW 15.6 % (11.5-14.5); WBC 37.1 10x3/uL (4.8-10.8)
--- NOTE | 2019-09-29 04:00 | NUR ---
PT RESTING IN BED. EYES CLOSED. NO SIGNS OF DISTRESS. WILL CONITNUE PLAN OF CARE. CALL LIGHT IN REACH.
[2019-09-29 04:36] LABS: LYMPHOCYTES 13 % (15-50); MONOCYTES 2 % (2-11); NEUTROPHILS 85 % (40-80); PLATELET ESTIMATE NORMAL
--- NOTE | 2019-09-29 06:00 | NUR ---
I have reviewed this patient and I concur with the Shift Assessment completed by the Licensed Practical Nurse today this shift.
--- NOTE | 2019-09-29 06:18 | NUR ---
PT RESTING IN BED. EYES CLOSED. NO SIGNS OF DISTRESS. BREATHING EVEN AND UNLABORED. WILL CONTINUE PLAN OF CARE. VITAL SIGNS STABLE.
--- NOTE | 2019-09-29 07:00 | NUR ---
SLEEPING AROUSABLE TO VERBAL STIMULI, VSS, DENIES PAIN, O2 VIA RA, ASSISTED WITH REPOSITONING, CALL LIGHT IN REACH, NO OTHER NEEDS AT THIS TIME
--- NOTE | 2019-09-29 08:42 | NUR ---
PC TO SPECIALS, SPOKE WITH GEOVANNY RE: CONFIRMING IF MD WILL DO PENDING BX TODAY, SHE WILL SPEAK WITH RADIOLOGIST AND CALL BACK WITH INFO
--- NOTE | 2019-09-29 09:54 | NUR ---
Nutrition follow-up: Pt continues clear liquids until all testing done s/p EGD with balloon dilitation / Labs reviewed Will need nutrition support started soon if diet unable to resume. RDN following.
--- NOTE | 2019-09-29 10:19 | NUR ---
TO SPECIALS VIA BED, AAO, FOR PENDING BX OF CHEST/LUNG WITH DR CUNHA,
--- NOTE | 2019-09-29 11:00 | NUR ---
BACK FROM SPECIALS, DROWSY, AROUSES TO VERBAL STIMULI, RECONNECTED TO ICU MONITORS, VSS, DENIES ANY PAIN, INCISION COVERED WITH GAUZE AND OPSITE, NO HEMATOMA NOTED, DRESSING CDI, NO OTHER CHANGES FROM PREVIOUS ASSESSMENT
--- NOTE | 2019-09-29 14:31 | NUR ---
SPUTUM SPECIMEN CILLECTED AND TAKEN TO LAB
--- NOTE | 2019-09-29 14:37 | NUR ---
CHG BATH COMPLETED, TOLERATED WITHOUT DIFFICULTY
[2019-09-29 14:54] LABS: HEMATOCRIT 37.8 % (36.0-48.0); HEMOGLOBIN 12.8 g/dL (12-16)
--- NOTE | 2019-09-29 16:50 | NUR ---
CALLED TO BEDSIDE, RIGHT FA PIV SIGHT HURTING, SIGHT CD, CHANGED NS IVF WITH SECONDARY VANC INFUSING, AND PROTONIX DRIP TRANSFERRED TO LEFT FA 20G PIV, DC'D RIGHT FA PIV WITHOUT DIFFICULTY, GAUZE AND BANDAGE DRESSING APPLIED
--- NOTE | 2019-09-29 17:05 | NUR ---
REPORT CALLED TO ALANNAH ON MED SURG PENDING TRANSFER TO 2227, 1710 DINNER TRAY TO BEDSIDE, ASSIST WITH SET UP, INDEPENDENT WITH EATING,
--- NOTE | 2019-09-29 18:10 | NUR ---
TRANSFERRED VIA BED TO 2227, AAO, NO SIGNS OF DISTRESS, ADELINE NURSE AT BEDSIDE,
--- NOTE | 2019-09-29 18:18 | NUR ---
JUST ARRIVED TO FLOOR FOR ICU AWAKE AND ALERT. RESP EVEN AND UNLABORED WITH NO DISTRESS NOTED. CAN EXPRESS NEEDS AND WANTS. NO C/O NOTED OR VOICED. C/L IN REACH AT BEDSIDE.
--- NOTE | 2019-09-29 19:30 | NUR ---
PATIENT RESTING IN BED WITH NO S/S OF DISTRESS. ASSISTED PATIENT TO AND FROM RR. PATIENT VOIDED. PATIENT DENIES OTHER NEEDS AT THIS TIME. BED IN LOWEST POSITION AND CALL LIGHT WITHIN REACH. ENCOURAGED THE PATIENT TO CALL IF SHE HAS NEEDS. WILL CONTINUE TO MONITOR.
--- NOTE | 2019-09-29 19:47 | NUR ---
PATIENT REQUESTED KLONOPIN FOR ANXIETY. WILL ADMINISTER MED PER ORDERS.
--- NOTE | 2019-09-29 22:16 | NUR ---
ADMINISTERED MEDS PER ORDERS AND ASSISTED PATIENT REPOSITIONING IN BED. PATIENT DENIES OTHER NEEDS AT THIS TIME. BED IN LOWEST POSITION AND CALL LIGHT WITHIN REACH.
[2019-09-29 23:32] LABS: HEMATOCRIT 35.2 % (36.0-48.0); HEMOGLOBIN 12.3 g/dL (12-16)
[2019-09-30 01:49] VITALS: BP 147/68
[2019-09-30 06:01] VITALS: BP 155/68
[2019-09-30 07:13] LABS: HEMATOCRIT 37.7 % (36.0-48.0); HEMOGLOBIN 12.5 g/dL (12-16)
[2019-09-30 09:37] VITALS: BP 176/61
--- NOTE | 2019-09-30 10:03 | NUR ---
PT ALERT X 4 BREATH SOUNDS CLEAR BILAT. TELEMETRY IN PLACE. IV TO LEFT FOREARM PATENT, DRESSING CDI. NO USE OF RIGHT ARM. ASSISTED PT TO RESTROOM, HAD BM. PT REPORTING NO PAIN AT THIS TIME. BED LOW, CALL LIGHT IN REACH. NO OTHER NEEDS AT THIS TIME.
[2019-09-30 13:42] VITALS: BP 156/63
[2019-09-30 17:16] VITALS: BP 141/86
[2019-09-30 20:00] VITALS: BP 157/55
[2019-10-01] VITALS: BP 150/60
[2019-10-01 04:00] VITALS: BP 154/63
[2019-10-01 04:53] LABS: BASOPHILS 0.1 % (0-2); EOSINOPHILS 0 % (0-7); HEMATOCRIT 37.3 % (36.0-48.0); HEMOGLOBIN 12.6 g/dL (12-16); MCH 29.4 pg (26.0-34.0); MCHC 33.8 g/dL (31.0-37.0); MCV 87.1 fL (80.0-100.0); MEAN PLATELET VOLUME 8.4 fL (7.4-10.4); MONOCYTES 5.5 % (2-11); NEUTROPHILS 85.4 % (40-80); PLATELET COUNT 251 10x3/uL (130-400); RBC 4.28 10x6/uL (4.00-5.40); RDW 17.8 % (11.5-14.5); WBC 34.4 10x3/uL (4.8-10.8)
[2019-10-01 05:03] LABS: ANION GAP 13.7 mmol/L (8-16); CALCIUM 7.7 mg/dL (8.5-10.1); CARBON DIOXIDE 21.4 mmol/L (21.0-32.0); CREATININE - SERUM 0.9 mg/dL (0.6-1.3); POTASSIUM - SERUM 4.1 mmol/L (3.5-5.1)
--- NOTE | 2019-10-01 08:36 | NUR ---
SHE IS ASKING FOR SOMETHING FOR DEPRESSION, SHE IS ALREADY ON SOMETHING. SHE STATS SHE NEEDS SOMETHING MORE.
[2019-10-01 09:38] VITALS: BP 112/72
--- NOTE | 2019-10-01 12:57 | MORECARE ---
CASE MANAGEMENT DISCHARGE SUMMARY PATIENT: FERMÍN WINSLOW UNIT: [id number] ADM DATE: 09/24/19 AGE: 79 : 42 SEX: F ROOM/BED: D.2228 AUTHOR: TOMASA,DOC PHYSICIAN: REFERRING PHYSICIAN: MARYANNE DELEON MD DATE OF SERVICE: 10/01/19 Discharge Plan Patient Name: FERMÍN WINSLOW Facility: [facility]:[place] : 1940 Planned Disposition: Home Anticipated Discharge Date: Discharge Date: Expected LOS: Initial Reviewer: [email or web address] Initial Review Date: 09/24/2019 Generated: 10/01/19 1:56 pm Comments DCP- Discharge Planning Updated by [email or web address]: Laquita Lane on 10/01/19 11:[address] Received a call from patient's DIL, Lindsey Rahman. Lindsey states that she had brought a packet of living will and POA and needs it notorized. I called and spoke to Jody and she states she will have Heidy see the patient today. CM will continue to follow and assist with discharge planning/needs. Lindsey Rahman - DIL - [phone] DCP- Discharge Planning Updated by [email or web address]: Indiana Bautista on 09/26/19 8:[address] LATE ENTRY 09/25/19 Patient Name: FERMÍN WINSLOW Admission Status: ER Accout number: [id number] Admission Date: 09-24-2019 : 1940 Admission Diagnosis: Attending: STELLA Current LOS: 1 Anticipated DC Date: Planned Disposition: Home Primary Insurance: MEDICARE A & B Discharge Planning Comments: CM met with patient to complete initial dc planning assessment. CM educated patient on the CM role and verbal consent given by patient to complete assessment. Patient lives at home alone where she is independent with her care. At discharge patient plans to return home and feels this is a safe discharge. CM discussed availability of home health, rehab services, and medical equipment. Patient has a walker, cane and shower chair if needed. Patient states if tumor comes back cancer she wants [facility]. STEVEN completed Patient denied known discharge needs at this time. CM will continue to follow and will assist as needed with dc plans/needs. Top Lift Compresser: Indiana Bautista DCPIA - Discharge Planning Initial Assessment Updated by [email or web address]: Indiana Bautista on 09/26/19 9:31 am * Is the patient Alert and Oriented? Yes * How many steps to enter\exit or inside your home? * PCP MEHRAN * [facility] - IN [place] * Preadmission Environment Home Alone * ADLs Independent * Other Equipment SHOWER CHAIR, WALKER, CANE * List name and contact numbers for known caregivers / representatives who currently or will assist patient after discharge: JOSH WINSLOW - DAUGHTER- [phone] MISTY WINSLOW - SON - [phone] * Verbal permission to speak to the caregivers and representatives has been obtained from the patient. Yes * Community resources currently utilized None * Additional services required to return to the preadmission environment? No * Can the patient safely return to the preadmission environment? Yes * Has this patient been hospitalized within the prior 30 days at any hospital? No Last DP export: 09/26/19 8:46 am Patient Name: FERMÍN WINSLOW Page [id number] at 1257 All edits/amendments must be made on the electronic document DICTATION DATE: 10/01/191255 BODY BUILDER: GEOVANNI 10/01/191255 RPT#: [id number] DC DATE: STATUS: ADM IN [facility] [address] [place] [address] END OF REPORT
[2019-10-01 13:06] VITALS: BP 129/58
[2019-10-01 16:28] VITALS: BP 153/66
[2019-10-01 20:00] VITALS: BP 131/87
[2019-10-02] VITALS: BP 121/78
[2019-10-02 04:00] VITALS: BP 125/82
[2019-10-02 05:41] LABS: BASOPHILS 0.1 % (0-2); EOSINOPHILS 0.1 % (0-7); HEMATOCRIT 35.9 % (36.0-48.0); HEMOGLOBIN 11.6 g/dL (12-16); IMMATURE GRANULOCYTES 3.7 % (0-5); LYMPHOCYTES 3.9 % (15-50); MCH 28.6 pg (26.0-34.0); MCHC 32.3 g/dL (31.0-37.0); MCV 88.4 fL (80.0-100.0); MEAN PLATELET VOLUME 8.6 fL (7.4-10.4); MONOCYTES 5.1 % (2-11); NEUTROPHILS 87.1 % (40-80); PLATELET COUNT 264 10x3/uL (130-400); RBC 4.06 10x6/uL (4.00-5.40); WBC 31.1 10x3/uL (4.8-10.8)
[2019-10-02 05:44] LABS: ANION GAP 10.8 mmol/L (8-16); CALCIUM 7.5 mg/dL (8.5-10.1); CARBON DIOXIDE 23.3 mmol/L (21.0-32.0); CREATININE - SERUM 0.8 mg/dL (0.6-1.3); POTASSIUM - SERUM 4.1 mmol/L (3.5-5.1)
--- NOTE | 2019-10-02 10:23 | NUR ---
PT ALERT X 4. BREATH SOUNDS CLEAR BILAT. IV TO LEFT FOREARM, PATENT, DRESSING CDI. TELEMETRY IN PLACE. PT REPORTING PAIN OF 3/10, WILL CONTINUE TO MONITOR. BED LOW, CALL LIGHT IN REACH. NO OTHER NEEDS AT THIS TIME.
[2019-10-02 14:18] VITALS: BP 118/74
--- NOTE | 2019-10-02 19:15 | NUR ---
PATIENT IS ALERT AND ORIENTED. CURRENTLY HAS AZITHROMYCIN INFUSING TO THE LEFT FOREARM. WEAKNESS IN THE RIGHT UPPER EXTREMETY AND LOWER EXTREMETY. PATIENT ABLE TO AMBULATE TO BATHROOM WITH ASSISTANCE. VOIDED WITH NO PROBLEMS AND RETURNED TO BED SAFELY. DENIES PAIN AT THIS TIME. REQUESTS KLONOPIN WITH HS MEDICATIONS. BED ALARM IS ON. DENIES FURTHER NEEDS. CPOC.
[2019-10-02 20:00] VITALS: BP 96/69
--- NOTE | 2019-10-02 20:56 | NUR ---
ADMINISTERED HS MEDICATIONS PER ORDER. DENIES FURTHER NEEDS AT THIS TIME. CPOC.
--- NOTE | 2019-10-02 23:38 | NUR ---
ASSISTED PATIENT TO THE BATHROOM. RETURNED TO BED SAFELY. BED ALARM ON.
--- NOTE | 2019-10-02 23:44 | NUR ---
I have reviewed this patient and I concur with the Shift Assessment completed by the Licensed Practical Nurse today this shift.
[2019-10-03] VITALS: BP 124/57
[2019-10-03 04:00] VITALS: BP 145/59
[2019-10-03 05:35] LABS: BASOPHILS 0.1 % (0-2); EOSINOPHILS 0.1 % (0-7); HEMATOCRIT 34.1 % (36.0-48.0); HEMOGLOBIN 11.3 g/dL (12-16); IMMATURE GRANULOCYTES 3.3 % (0-5); MCHC 33.1 g/dL (31.0-37.0); MCV 87.7 fL (80.0-100.0); MEAN PLATELET VOLUME 8.4 fL (7.4-10.4); MONOCYTES 6.1 % (2-11); NEUTROPHILS 86.4 % (40-80); PLATELET COUNT 254 10x3/uL (130-400); RBC 3.89 10x6/uL (4.00-5.40); RDW 17.8 % (11.5-14.5); WBC 31.4 10x3/uL (4.8-10.8)
[2019-10-03 05:49] LABS: ANION GAP 12.2 mmol/L (8-16); CALCIUM 7.4 mg/dL (8.5-10.1); CARBON DIOXIDE 26.1 mmol/L (21.0-32.0); CREATININE - SERUM 0.8 mg/dL (0.6-1.3); POTASSIUM - SERUM 4.3 mmol/L (3.5-5.1)
[2019-10-03 10:42] VITALS: BP 141/84
--- NOTE | 2019-10-03 13:21 | NUR ---
PT ALERT X 4. BREATH SOUNDS CLEAR BILAT. WEAKNESS OF LEFT SIDE. TELEMETRY IN PLACE. IV TO LEFT HAND, SALINE LOCKED. PT REPORTING NO PAIN AT THIS TIME. BED LOW, CALL LIGHT IN REACH. NO OTHER NEEDS AT THIS TIME.
--- NOTE | 2019-10-03 21:30 | NUR ---
HS MEDICATIONS GIVEN TO INCLUDE KLONOPIN AND LUNESTA PER PRN ORDERS, PER REQUEST FOR ANXIETY AND SLEEP.
[2019-10-03 22:30] VITALS: BP 127/47
[2019-10-04] VITALS (18 sets, daily range): BP systolic 94–159; BP diastolic 45–80
--- NOTE | 2019-10-04 00:22 | NUR ---
PT DECLINED DECADRON THIS DOSE, IT KEEPS HER AWAKE AND SHE WANTS TO SLEEP.
[2019-10-04 05:19] LABS: CALCIUM 7.2 mg/dL (8.5-10.1); CREATININE - SERUM 0.8 mg/dL (0.6-1.3)
[2019-10-04 05:21] LABS: HEMATOCRIT 31.6 % (36.0-48.0); HEMOGLOBIN 10.3 g/dL (12-16); MCH 28.8 pg (26.0-34.0); MCHC 32.6 g/dL (31.0-37.0); MCV 88.3 fL (80.0-100.0); MEAN PLATELET VOLUME 8.6 fL (7.4-10.4); PLATELET COUNT 292 10x3/uL (130-400); RBC 3.58 10x6/uL (4.00-5.40); RDW 17.3 % (11.5-14.5); WBC 32.7 10x3/uL (4.8-10.8)
--- NOTE | 2019-10-04 06:22 | NUR ---
HIBACLENS BATH PERFORMED. ALL LINENS AND GOWN CHANGED.
--- NOTE | 2019-10-04 06:50 | NUR ---
ASSESSMENT PER FLOW SHEET. PATIENT IS WITHOUT DISTRESS. ASSIST TO BATHROOM AND BACK TO BED. NPO FOR SURGRY TODAY.
--- NOTE | 2019-10-04 07:33 | NUR ---
PREMEDS ORDERED. TO OR VIA BED
--- NOTE | 2019-10-04 07:33 | NUR ---
PATIENT DOES NOT WANT FAMILY CALLED. SHE SAID IT IS TO EARLY TO CALL THEM. PATIENT STATES SHE SPOKE WITH THEM LAST NIGHT.
[2019-10-04 09:42] LABS: LYMPHOCYTES 5 % (15-50); MONOCYTES 18 % (2-11); NEUTROPHILS 74 % (40-80); PLATELET ESTIMATE NORMAL
--- NOTE | 2019-10-04 10:35 | NUR ---
PT IN SURGERY NO TX GIVEN
--- NOTE | 2019-10-04 10:56 | NUR ---
PATIENT PLACED IN NEON ALL AREAS PADDED SECURED WITH NO IMPINGEMENTS, DR ROGERS PRESENT AND ASSISTING ON POSITION, NAVIGATION SET UP AND CALIBRATED PER JOEL EUBANKS.
--- NOTE | 2019-10-04 13:15 | NUR ---
SENSATIONS INTACT TO ALL EXTREMITIES HOWEVER PATIENT IS UNABLE TO MOVE RT ARM OR LEG. PATIENT REPORTS RT SIDE PARALYSIS ONSET X1 MONTH.
--- NOTE | 2019-10-04 14:00 | NUR ---
RECIEVED PT FROM RECOVERY ROOM. VOICES C/O DRESSING BEING TIGHT.
--- NOTE | 2019-10-04 19:00 | NUR ---
SHIFT ASSESSMENT COMPLETED. PT CARE ASSUMED. MONITORS ON AND WORKING,VITALS STABLE, PT AWAKE AND ALERT, NEURO CHECKS COMPLETED. ART LINE WITH GOOD WAVE FORM, WRIST PROTECTOR ON TO RT RADIAL. CALL LIGHT WITHIN REACH, SEE FLOW SHEET FOR FURTHER DETAILS. WILL CONTINUE TO OBSERVE.
--- NOTE | 2019-10-04 23:00 | NUR ---
PT TURNED AND REPOSITIONED FOR COMFORT, MONITORS ON AND WORKING, VITALS STABLE, PT AWAKE AND ALERT, CALL LIGHT WITHIN REACH, SEE FLOW SHEET FOR FURTHER DETAILS. WILL CONTINUE TO OBSERVE.
[2019-10-05] VITALS (24 sets, daily range): BP systolic 105–136; BP diastolic 40–80
--- NOTE | 2019-10-05 01:00 | NUR ---
PT LYING IN BED RESTING, MONITORS ON AND WORKING, VITALS STABLE. CALL LIGHT WITHIN REACH, WILL CONTINUE TO OBSERVE.
--- NOTE | 2019-10-05 03:00 | NUR ---
PT TURNED AND REPOSITIONED FOR COMFORT, MONITORS ON AND WORKING, VITALS STABLE. SEE FLOW SHEET FOR FURTHER DETIALS. WILL CONTINUE TO OBSERVE.
[2019-10-05 05:19] LABS: BASOPHILS 0.1 % (0-2); EOSINOPHILS 0.3 % (0-7); HEMATOCRIT 30.6 % (36.0-48.0); HEMOGLOBIN 9.8 g/dL (12-16); IMMATURE GRANULOCYTES 1.9 % (0-5); LYMPHOCYTES 3.1 % (15-50); MCH 28.8 pg (26.0-34.0); MEAN PLATELET VOLUME 8.5 fL (7.4-10.4); MONOCYTES 6.1 % (2-11); NEUTROPHILS 88.5 % (40-80); PLATELET COUNT 280 10x3/uL (130-400); RDW 17.5 % (11.5-14.5); WBC 38.2 10x3/uL (4.8-10.8)
[2019-10-05 05:23] LABS: CALC OSMOLALITY 263 mosm/kg (275-300); CALCIUM 7.6 mg/dL (8.5-10.1); CARBON DIOXIDE 27.7 mmol/L (21.0-32.0); CHLORIDE - SERUM 98 mmol/L (98-107); CREATININE - SERUM 0.6 mg/dL (0.6-1.3); GLUCOSE 80 mg/dL (74-106); POTASSIUM - SERUM 4.5 mmol/L (3.5-5.1); SODIUM 130 mmol/L (136-145); UREA NITROGEN 25 mg/dL (7-18); eGFR NON AFRICAN AMERICAN > 90 mL/min (90-120)
--- NOTE | 2019-10-05 07:31 | NUR ---
Nutrition follow-up: Pt s/p craniotomy; remains NPO PO intake before surgery poor Labs reviewed Wt: 109# Recommend starting nutrition support due to pts poor po intake. ProcalAmine PPN @ 75 ml/hr would provide some nutrition. RDN following.
--- NOTE | 2019-10-05 14:37 | NUR ---
OT NOTE: ATTEMPTED TO POSITION PATIENT FOR SUPINE TO SIT WITH OTR. HOWEVER, PT BECAME NAUSEOUS AND EYES FIXATED. NURSING NOTIFIED. NURSING NOTIFIED KEN FREDERICK. PLATA/OTR ATTEMPTED TO ORIENT PATIENT TO TIME AND PLACE. ASSISTED PATIENT WITH FACIAL HYGIENE AFTER EPISODE OF NAUSEA. 1130-56 THANK YOU,SHERLYN GORE
--- NOTE | 2019-10-05 14:59 | NUR ---
OT NOTE: ATTEMPTED EVALUATION HOWEVER, NURSING WAS ABLE TO REMOVE SOME LINES AND HER CATHETER TO ALLOW FOR EASIER MOVEMENT FOR PT. BEGAN EVALUATING HER ROM AND MOVEMENT IN R SIDE. PT WAS ALERT AND ORIENTED.. ABLE TO PROVIDE INFORMATION ON PLOF. WAITED FOR SEVERAL MIN, HOWEVER, AFTER NURSING REMOVED LINE FROM ARTERY, IT WAS STILL BLEEDING, SO RETURNED APPROX 30 MIN LATER. UPON ENTERING ROOM, PT WAS EXTREMELY LETHARGIC.. WOULD AROUSE FOR JUST A MOMENT AND THEN RIGHT BACK TO SLEEP. CONTINUALLY ATTEMPTING TO AROUSE, THEN PT LEANED FORWARD AND BEGAN VOMITTING. PT THEN BECAME SLOW TO RESPOND; WAS NOT ANSWERING QUESTIONS; SLIGHT SLURRING OF SPEECH WHEN SHE DID ANSWER; PT WITH BLANK STARE AND NO PUPIL REACTION IN EITHER EYE. NURSING NOTIFIED WHO IN [place] CALLING PHYSICIAN. UNABLE TO COMPLETE FULL EVALUATION. WILL RE ATTEMPT TOMORROW. HAMMAD RAY, OTR/L 1130-12
--- NOTE | 2019-10-05 20:23 | NUR ---
PT UNABLE TO USE PUREWICK CATH, ASSIST GIVEN TO BEDSIDE COMMODE MODERATE ASSIST NEEDED. RIGHT LOWER EXTREMITY WITH MINIMAL MOVEMENT. PT CAN SLIGHTLY MOVE TOES, UNABLE TO PUSH DOWN WITH RIGHT FOOT AND UNABLE TO LIFT FOOT OFF BED. PT HAD 300 MLS OF URINE OUT. BACK IN BED POSITIONED FOR COMFORT. CALL LIGHT IN REACH. WILL CONTINUE TO OBSERVE.
--- NOTE | 2019-10-05 23:21 | NUR ---
PT RESTING WITH EYES CLOSED AND CHEST RISING. EASILY AWOKEN TO VERBAL STIMULI. NO NEEDS NOTED AT THIS TIME. NO S/S OF DISTRESS. CALL LIGHT IN REACH. WILL CONTINUE TO OBSERVE.
[2019-10-06] VITALS (23 sets, daily range): BP systolic 100–148; BP diastolic 52–79
--- NOTE | 2019-10-06 01:00 | NUR ---
PT IN ICU 2302. PT MORE CONFUSED THAN PREVIOUS SHIFT, EASY TO RE ORIENTATE. MONITORS ON AND WORKING, VITALS STABLE, CALL LIGHT WITHIN REACH WILL CONTINUE TO OBSERVE.
[2019-10-06 05:40] LABS: HEMATOCRIT 30.8 % (36.0-48.0); HEMOGLOBIN 9.8 g/dL (12-16); MCH 28.7 pg (26.0-34.0); MCHC 31.8 g/dL (31.0-37.0); MCV 90.1 fL (80.0-100.0); MEAN PLATELET VOLUME 8.5 fL (7.4-10.4); PLATELET COUNT 311 10x3/uL (130-400); RBC 3.42 10x6/uL (4.00-5.40); RDW 17.3 % (11.5-14.5)
[2019-10-06 05:48] LABS: ALBUMIN 1.7 g/dL (3.4-5.0); ALKALINE PHOSPHATASE 48 U/L (30-120); ALT (SGPT) 28 U/L (10-68); BILIRUBIN - TOTAL 0.66 mg/dL (0.2-1.3); CALC OSMOLALITY 264 mosm/kg (275-300); CALCIUM 7.6 mg/dL (8.5-10.1); CARBON DIOXIDE 26.5 mmol/L (21.0-32.0); CHLORIDE - SERUM 98 mmol/L (98-107); CREATININE - SERUM 0.5 mg/dL (0.6-1.3); GLUCOSE 99 mg/dL (74-106); POTASSIUM - SERUM 3.9 mmol/L (3.5-5.1); PROTEIN - SERUM 4.8 g/dL (6.4-8.2); SODIUM 130 mmol/L (136-145); UREA NITROGEN 23 mg/dL (7-18); eGFR NON AFRICAN AMERICAN > 90 mL/min (90-120)
[2019-10-06 07:05] LABS: LYMPHOCYTES 3 % (15-50); MONOCYTES 6 % (2-11); NEUTROPHILS 91 % (40-80); PLATELET ESTIMATE NORMAL
--- NOTE | 2019-10-06 07:30 | NUR ---
REPORT RECIEVED, SHIFT ASSESSMENT COMPLETE, PT IS ALERT AND ORIENTED, ON 4L NC WITH 97% O2 SAT. ALL PPP, VSS, CALL LIGHT IN REACH
--- NOTE | 2019-10-06 07:35 | NUR ---
UPDATE GIVEN TO DR. ROGERS AT THIS TIME, NEW ORDERS RECIEVED,
--- NOTE | 2019-10-06 09:17 | NUR ---
Nutrition follow-up: Pt continues NPO PO intake has been poor. Labs reviewed Wt: 109# Will need to consider nutrition support (PEG tube vs NGT placement) and TF feeding if physician and patient agree 2/2 pt not meeting estimated energy needs with po intake at this time. RDN following.
--- NOTE | 2019-10-06 11:06 | NUR ---
REASSESSMENT COMPLETE, NO CHANGES NOTED, PT RESTING AT THIS TIME, WILL CON'T TO MONITOR
--- NOTE | 2019-10-06 13:00 | NUR ---
ASSUMED CARE OF PT. VSS AND WNL. BED ALARM ON. CALL LIGHT WITHIN REACH. WILL CONT TO FOLLOW POC
--- NOTE | 2019-10-06 15:00 | NUR ---
REASSESSMENT COMPLETED. VSS AND WNL. NO SIGNS OF DISTRESS NOTED AT THIS TIME, CALL LIGHT WITHIN REACH. WILL CONT TO FOLLOW POC
--- NOTE | 2019-10-06 17:01 | NUR ---
PT RESTING IN BED, VSS AND WNL. ASSISTED PT WITH EATING SUPPER. CALL LIGHT WITHIN REACH, WILL CONT TO FOLLOW POC
--- NOTE | 2019-10-06 19:00 | NUR ---
REPORT RECEIVED. PT RESTING IN BED, NO ACUTE DISTRESS NOTED. ASSESSMENT COMPLETED, SEE FLOWSHEET. LT SUBCLAVIAN CVL INFUSING, SEE IV FLOWSHEET. WILL CONTINUE TO MONITOR.
--- NOTE | 2019-10-06 21:00 | NUR ---
PT RESTING IN BED, NO ACUTE DISTRESS NOTED. WILL CONTINUE TO MONITOR.
--- NOTE | 2019-10-06 23:00 | NUR ---
REASSESSMENT COMPLETE, SEE FLOWSHEET.
[2019-10-07] VITALS (24 sets, daily range): BP systolic 123–170; BP diastolic 56–94
--- NOTE | 2019-10-07 01:00 | NUR ---
PT RESTING IN BED, NO ACUTE DISTRESS NOTED.
[2019-10-07 06:07] LABS: BASOPHILS 0 % (0-2); EOSINOPHILS 0.5 % (0-7); HEMATOCRIT 31.1 % (36.0-48.0); HEMOGLOBIN 9.9 g/dL (12-16); IMMATURE GRANULOCYTES 1.2 % (0-5); LYMPHOCYTES 4.9 % (15-50); MCH 28.5 pg (26.0-34.0); MCHC 31.8 g/dL (31.0-37.0); MCV 89.6 fL (80.0-100.0); MEAN PLATELET VOLUME 8.4 fL (7.4-10.4); NEUTROPHILS 88.4 % (40-80); PLATELET COUNT 320 10x3/uL (130-400); RBC 3.47 10x6/uL (4.00-5.40); RDW 17.2 % (11.5-14.5); WBC 29.3 10x3/uL (4.8-10.8)
[2019-10-07 06:10] LABS: ALBUMIN 1.7 g/dL (3.4-5.0); ALKALINE PHOSPHATASE 43 U/L (30-120); ALT (SGPT) 24 U/L (10-68); BILIRUBIN - TOTAL 0.37 mg/dL (0.2-1.3); CALC OSMOLALITY 266 mosm/kg (275-300); CALCIUM 7.5 mg/dL (8.5-10.1); CARBON DIOXIDE 26.5 mmol/L (21.0-32.0); CHLORIDE - SERUM 99 mmol/L (98-107); CREATININE - SERUM 0.5 mg/dL (0.6-1.3); GLUCOSE 111 mg/dL (74-106); PROTEIN - SERUM 4.7 g/dL (6.4-8.2); SODIUM 131 mmol/L (136-145); UREA NITROGEN 21 mg/dL (7-18); eGFR NON AFRICAN AMERICAN > 90 mL/min (90-120)
[2019-10-07 06:18] LABS: POTASSIUM - SERUM 3.3 mmol/L (3.5-5.1)
--- NOTE | 2019-10-07 07:00 | NUR ---
PT RESTING IN BED, VSS AND WNL. NO SIGNS OF DISTRESS NOTED. BED ALARM ON. WILL CONT TO FOLLOW POC
--- NOTE | 2019-10-07 08:30 | NUR ---
PT RESTING IN BED, ETT SECURED. RESP THERAPY HERE AND PLACED PT ON CPAP TRIALS. PT BEGAN TO PANIC AND HR WENT UP TO 130-140. O2 SAT DROPPED TO 60S. 2 MIN 02 100% BUTTON PRESSED BY RESP THERAPY. NURSE AND RESP THERAPY GOT PT TO CALM DOWN AND PT HR DROPPED TO 110S AND O2 STAYED ABOVE 90%. SOON RESP THERAPY AND NURSE WALKED OUT OF THE ROOM, PT BEGAN TO PANIC AGAIN AND STOPPED BREATHING ON HER OWN. PT WAS PLACED BACK ON ASSIST CONTROL AND PRN VERSED GIVEN. PT NOW RESTING PEACEFULLY IN BED AND VSS.
--- NOTE | 2019-10-07 09:00 | NUR ---
PT RESTING IN BED, VSS AND WNL. NO SIGNS OF DISTRESS NOTED. BED ALARM ON. WILL CONT TO FOLLOW POC
--- NOTE | 2019-10-07 11:00 | NUR ---
PT RESTING IN BED, CALL LIGHT WITHIN REACH, VSS AND WNL. NO SIGNS OF DISTRESS NOTED .BED ALARM ON, WILL CONT TO FOLLOW POC
--- NOTE | 2019-10-07 13:00 | NUR ---
PT RESTING IN BED, VSS AND WNL. NO SIGNS OF DISTRESS NOTED. BED ALARM ON. CALL LIGHT WITHIN REACH. WILL CONT TO FOLLOW POC
--- NOTE | 2019-10-07 14:44 | NUR ---
OT NOTE: PT COMPLETED RUE PROM TOLERATED. PT COMPLETED LUE AROM AXS FOR INCREASED I WITH SELF FEEDING TASKS. PT COMPLETED SIMPLE HYGIENE TASKS WITH LUE REQUIRED SET UP. PT ABLE TO BRIDGE WITH LLE WITH MOD A TO RELIEVE PRESSURE. PT STATED " I FEEL OUT OF IT." NURSING NOTIFIED. NURSING ASSESSED. [id number] THANK YOU,SHERLYN GORE
--- NOTE | 2019-10-07 15:00 | NUR ---
PT RESTING IN BED, VSS AND WNL. NO SIGNS OF DISTRESS NOTED. BED ALARM ON. WILL CONT TO FOLLOW POC
--- NOTE | 2019-10-07 19:00 | NUR ---
SHIFT ASSESSMENT COMPLETED PT CARE ASSUMED. MONITORS ON AND WORKING, VITALS STABLE. CALL LIGHT WITHIN REACH, SEE FLOW SHEET FOR FURTHER DETAILS, WILL CONTINUE TO OBSERVE.
[2019-10-08] VITALS (24 sets, daily range): BP systolic 86–180; BP diastolic 49–88
--- NOTE | 2019-10-08 | NUR ---
PT TURNED AND REPOSITIONED FOR COMFORT. MONITORS ON AND WORKING, VITALS STABLE. CALL LIGHT WITHIN REACH, WILL CONTINUE TO OBSERVE.
--- NOTE | 2019-10-08 03:00 | NUR ---
PT TURNED AND REPOSITIONED FOR COMFORT,. MONITORS ON AND WORKUING, VITALS STABLE, CALL LIGHT WIHTIN REACH, WILL CONTINUE TO OBSERVE.
[2019-10-08 07:18] LABS: ALBUMIN 1.8 g/dL (3.4-5.0); ALKALINE PHOSPHATASE 59 U/L (30-120); ALT (SGPT) 23 U/L (10-68); BILIRUBIN - TOTAL 0.29 mg/dL (0.2-1.3); CALC OSMOLALITY 265 mosm/kg (275-300); CALCIUM 7.2 mg/dL (8.5-10.1); CARBON DIOXIDE 25.5 mmol/L (21.0-32.0); CHLORIDE - SERUM 99 mmol/L (98-107); CREATININE - SERUM 0.4 mg/dL (0.6-1.3); GLUCOSE 105 mg/dL (74-106); POTASSIUM - SERUM 3.7 mmol/L (3.5-5.1); PROTEIN - SERUM 4.8 g/dL (6.4-8.2); SODIUM 132 mmol/L (136-145); UREA NITROGEN 16 mg/dL (7-18); eGFR NON AFRICAN AMERICAN > 90 mL/min (90-120)
--- NOTE | 2019-10-08 07:30 | NUR ---
REPORT RECEIVED. PT IS ALERT. PT HAS A RIGHT SUBC WITH NS INFUSING. PT HAS INCISION TO HEAD WITH DENIS INTACT. SHE IS UNABLE TO LIFT HER RIGHT LEG AND RIGHT ARM. SHE CAN SQUEEZE WITH RIGHT HAND. SHE HAS A PUREWICK. SHE IS HOOKED UP TO MONITORS. VSS. WILL CONTINUE TO MONITOR.
[2019-10-08 08:39] LABS: WBC 34.9 10x3/uL (4.8-10.8)
[2019-10-08 08:40] LABS: HEMATOCRIT 30.7 % (36.0-48.0); MCHC 32.6 g/dL (31.0-37.0); MEAN PLATELET VOLUME 8.6 fL (7.4-10.4); PLATELET COUNT 358 10x3/uL (130-400); RBC 3.45 10x6/uL (4.00-5.40); RDW 16.9 % (11.5-14.5)
[2019-10-08 11:14] LABS: LYMPHOCYTES 9 % (15-50); MONOCYTES 7 % (2-11); NEUTROPHILS 84 % (40-80); PLATELET ESTIMATE NORMAL
[2019-10-08 11:15] LABS: ANISOCYTOSIS OCC
--- NOTE | 2019-10-08 12:00 | NUR ---
CLONAZEPAM ORDERED AND GIVEN. PT VERY ANXIOUS. WILL MONITOR.
--- NOTE | 2019-10-08 12:12 | NUR ---
Nutrition Follow-up: Nursing reports pt eating well; ate majority of breakfast this AM. Diet: Regular PO intake: 50-100% No new wt; last wt: 110# (09/27) Last recorded BM: 09/27 Labs noted: Na 132, Ca 7.2, Alb 1.8 Meds noted: Protonix, NS @ 125, Pepcid -Encourage PO intake and honor food preferences. -Monitor wt. -RD following.
--- NOTE | 2019-10-08 13:00 | NUR ---
PT RESTING QUIETLY. STATED MEDICATION HELPED. ATE MOST OF HER LUNCH. VSS. WILL CONTINUE TO MONITOR.
--- NOTE | 2019-10-08 16:30 | NUR ---
PT STATES SHE HAS SOME TINGLING IN HER RIGHT FOOT. UNABLE TO WIGGLE HER TOES. REFLEX IN TOES PRESENT. STATES SHE HAS CONTINUED HAVING FEELING IN HER LEG, JUST THAT SHE CAN'T MOVE IT ON HER OWN. NO OTHER COMPLAINTS OR NEEDS AT THIS TIME. WILL CONTINUE TO MONITOR.
--- NOTE | 2019-10-08 16:43 | NUR ---
OT NOTE: PT COMPLETED FACE HYGIENE WITH LUE WITH SET UP. PT COMPLETED RUE PROM FOR SHOULDER AND ELBOW FLEXION TOLREATED. . PT WAS ABLE TO ACTIVELY OPEN AND CLOSE R HAND.PT COMPLETED BRIDGING WITH SBA FOR POSITIONING IN BED. [id number] THANK YOU,SHERLYN GORE
--- NOTE | 2019-10-08 19:00 | NUR ---
REPORT RECEIVED INITIAL ASSESSMENT COMPLETE SEE FLOWSHEET. PT ALERT AND ORIENTED. RIGHT SIDED WEAKNESS ABLE TO CAN SEALER SOFTLY WITH RIGHT HAND BUT UNABLE TO MOVE GROSS MOTOR ARM. RIGHT LEG FLACCID. 2 PLUS EDEMA TO RUE. CM READING SR WITHOUT ECTOPY ALARMS ON AND AUDIBLE. BED LOW POSITION SIDE RAILS UP TIMES 3 FOR BED MOBILITY AND SAFETY. CL IN REACH VSS WILL MONITOR
--- NOTE | 2019-10-08 20:45 | NUR ---
ANSWERED PTS CALL LIGHT PT STATES "MY BED IS WET THAT CATHETER IS NOT WORKING" TRISTIN WARD APN ON UNIT INFORMED OF PUREWICK LEAKING SEVERAL TIMES PER PT REPORT TODAY HE ORDERED SOSA. PT STATES SHE IS OK WITH SOSA BECAUSE THE OTHER HAS LEAKED SEVERAL TIMES TODAY. COMPLETE CHG BATH AND LINEN CHANGE AND SOSA PLACED WITHOUT DIFFICULTY.
--- NOTE | 2019-10-08 23:00 | NUR ---
REASSESSMENT COMPLETE NO CHANGES VSS CPOC
[2019-10-09] VITALS (23 sets, daily range): BP systolic 121–156; BP diastolic 50–78
--- NOTE | 2019-10-09 | NUR ---
ANSWERED PTS CALL LIGHT C/O PAIN MEDICATED WITH NORCO SEE EMAR PRNN MED WILL MONITOR.
--- NOTE | 2019-10-09 01:00 | NUR ---
PT RESTING QUIETLY WITH EYES CLOSED PAIN MED EFFECTIVE VSS WILL MONITOR
--- NOTE | 2019-10-09 03:00 | NUR ---
REASSESSMENT COMPLETE PT DENIES PAIN VSS CPOC
[2019-10-09 06:42] LABS: ALBUMIN 1.6 g/dL (3.4-5.0); ALKALINE PHOSPHATASE 60 U/L (30-120); ALT (SGPT) 21 U/L (10-68); BILIRUBIN - TOTAL 0.22 mg/dL (0.2-1.3); CALC OSMOLALITY 266 mosm/kg (275-300); CALCIUM 7.2 mg/dL (8.5-10.1); CARBON DIOXIDE 28.8 mmol/L (21.0-32.0); CHLORIDE - SERUM 100 mmol/L (98-107); CREATININE - SERUM 0.4 mg/dL (0.6-1.3); GLUCOSE 101 mg/dL (74-106); POTASSIUM - SERUM 3.4 mmol/L (3.5-5.1); PROTEIN - SERUM 4.6 g/dL (6.4-8.2); SODIUM 133 mmol/L (136-145); UREA NITROGEN 15 mg/dL (7-18); eGFR NON AFRICAN AMERICAN > 90 mL/min (90-120)
[2019-10-09 06:46] LABS: BASOPHILS 0 % (0-2); EOSINOPHILS 0.8 % (0-7); HEMATOCRIT 27.8 % (36.0-48.0); IMMATURE GRANULOCYTES 0.8 % (0-5); MCH 28.8 pg (26.0-34.0); MCHC 32.4 g/dL (31.0-37.0); MCV 89.1 fL (80.0-100.0); MEAN PLATELET VOLUME 8.2 fL (7.4-10.4); NEUTROPHILS 88.4 % (40-80); PLATELET COUNT 290 10x3/uL (130-400); RBC 3.12 10x6/uL (4.00-5.40); RDW 17.1 % (11.5-14.5); WBC 26.4 10x3/uL (4.8-10.8)
--- NOTE | 2019-10-09 09:14 | NUR ---
0700 PT RECIEVED ALERT AND ORIENTED, REORIENTED TO SITUATION NEEDED, DENIS ON HEAD CDI, RUE WEAK [employer] PLANNING DIRECTOR BUT UNABLE TO LIFT, RLE FLACCID, SEE SHIFT ASSESSMENT FOR DETAILS 0900 TOOK AM MEDS WITHOUT DIFFICULTY, ASSISTED WITH BREAKFAST
--- NOTE | 2019-10-09 17:21 | NUR ---
pt repositioned [id number] throughout day, denies pain and all needs, no changes in neuro status, will continue to monitor
--- NOTE | 2019-10-09 19:00 | NUR ---
REPORT RECEIVED. INITIAL ASSESSMENT COMPLETE. SEE ASSESSMENT FLOWSHEET. PT STATES "TODAY WAS HORRIBLE THE STEROIDS ARE MAKING ME CRAZY" ASKED ABOUT PAIN DOES NOT WANT PAIN MED AT THIS TIME BUT WILL CALL WHEN SHE DOES. WANTS ANXIETY MEDS SOON POSSIBLE. BED LOW POSITION SIDE RAILS UP TIMES 3 FOR BED MOBILITY AND SAFETY CL IN REACH. CM READING SR WITHOUT ECTOPY ALARMS ON AND AUDIBLE. WILL CONTINUE TO MONITOR
--- NOTE | 2019-10-09 19:15 | NUR ---
ANSWERED PTS CALL LIGHT WANTING FRESH ICE WATER AND WANTS HOB DOWN MORE.
--- NOTE | 2019-10-09 19:31 | NUR ---
ANSWERED PTS CALL LIGHT C/O PAIN GENERALIZED AND "THE STEROIDS ARE MAKING ME MORE ANXIOUS". INFORMED WOULD GIVE NIGHT TIME MEDS WHEN ABLE AND COULD GIVE PAIN MED NOW SHE REQUESTS PAIN MED NOW MEDICATED PER PRN EMAR WILL MONITOR
--- NOTE | 2019-10-09 19:35 | NUR ---
ANSWERED PTS CALL LIGHT REQUESTING BED OROZCO FOR BM. PT ABLE TO MINIMALLY ASSIST TURNING CL IN REACH WHEN PT FINISHED
--- NOTE | 2019-10-09 19:37 | NUR ---
ANSWERED PTS CALL LIGHT SHE STATED NEVER MIND I CANT GO. ENCOURAGED PT TO GIVE A LITTLE TIME SHE HAD ONLY BEEN ON BED OROZCO FOR COUPLE MINUTES
--- NOTE | 2019-10-09 19:40 | NUR ---
ANSWERED PTS CALL LIGHT UNABLE TO HAVE BM STATES "ITS GETTING CLOSER JUST GAS RIGHT NOW" ASSISTED OFF BED OROZCO AND REPOSITIONED FOR COMFORT
--- NOTE | 2019-10-09 19:45 | NUR ---
ANSWERED PTS CALL LIGHT SHE NEEDS HER CELL PHONE PUT IN DRAWER
--- NOTE | 2019-10-09 23:00 | NUR ---
REASSESSMENT COMPLETE PT RESTING AFTER NIGHT MEDS. REPOSITIONED FOR COMFORT. ENCOURAGED TO TAKE DEEP BREATHS AND REPOSITION SELF MUCH POSSIBLE PT VERBALIZES GOOD UNDERSTANDING. VSS AT THIS TIME CPOC
[2019-10-10] VITALS (14 sets, daily range): BP systolic 120–150; BP diastolic 42–75
--- NOTE | 2019-10-10 04:00 | NUR ---
ANSWERED CALL LIGHT PT REQUESTING REPOSITIONING AFTER RADIOLOGY DID CHEST X RAY. REPOSITIONED FOR COMFORT VSS CPOC
[2019-10-10 06:11] LABS: HEMATOCRIT 27.2 % (36.0-48.0); HEMOGLOBIN 8.7 g/dL (12-16); MCH 28.7 pg (26.0-34.0); MCV 89.8 fL (80.0-100.0); MEAN PLATELET VOLUME 8.2 fL (7.4-10.4); PLATELET COUNT 282 10x3/uL (130-400); RBC 3.03 10x6/uL (4.00-5.40); RDW 17.3 % (11.5-14.5); WBC 24.3 10x3/uL (4.8-10.8)
[2019-10-10 06:17] LABS: ALBUMIN 1.5 g/dL (3.4-5.0); ALKALINE PHOSPHATASE 64 U/L (30-120); ALT (SGPT) 19 U/L (10-68); BILIRUBIN - TOTAL 0.11 mg/dL (0.2-1.3); CALC OSMOLALITY 264 mosm/kg (275-300); CALCIUM 7.5 mg/dL (8.5-10.1); CARBON DIOXIDE 28.4 mmol/L (21.0-32.0); CHLORIDE - SERUM 99 mmol/L (98-107); CREATININE - SERUM 0.5 mg/dL (0.6-1.3); GLUCOSE 112 mg/dL (74-106); POTASSIUM - SERUM 4.1 mmol/L (3.5-5.1); PROTEIN - SERUM 4.8 g/dL (6.4-8.2); SODIUM 131 mmol/L (136-145); UREA NITROGEN 14 mg/dL (7-18); eGFR NON AFRICAN AMERICAN > 90 mL/min (90-120)
[2019-10-10 06:30] LABS: LYMPHOCYTES 11 % (15-50); MONOCYTES 1 % (2-11); NEUTROPHILS 88 % (40-80); PLATELET ESTIMATE NORMAL
--- NOTE | 2019-10-10 13:46 | NUR ---
CHG BATH COMPLETE ALONG WITH ROM. PT ELIER WELL.
[2019-10-11 01:01] VITALS: BP 148/51
[2019-10-11 04:00] VITALS: BP 132/60
[2019-10-11 05:56] LABS: ALBUMIN 1.5 g/dL (3.4-5.0); ALKALINE PHOSPHATASE 62 U/L (30-120); ALT (SGPT) 19 U/L (10-68); BILIRUBIN - TOTAL 0.11 mg/dL (0.2-1.3); CALC OSMOLALITY 267 mosm/kg (275-300); CALCIUM 7.6 mg/dL (8.5-10.1); CARBON DIOXIDE 28.2 mmol/L (21.0-32.0); CHLORIDE - SERUM 99 mmol/L (98-107); CREATININE - SERUM 0.6 mg/dL (0.6-1.3); GLUCOSE 118 mg/dL (74-106); POTASSIUM - SERUM 4.1 mmol/L (3.5-5.1); PROTEIN - SERUM 4.9 g/dL (6.4-8.2); SODIUM 132 mmol/L (136-145); UREA NITROGEN 17 mg/dL (7-18); eGFR NON AFRICAN AMERICAN > 90 mL/min (90-120)
[2019-10-11 06:15] LABS: HEMATOCRIT 27.3 % (36.0-48.0); HEMOGLOBIN 8.6 g/dL (12-16); MCH 28.6 pg (26.0-34.0); MCHC 31.5 g/dL (31.0-37.0); MCV 90.7 fL (80.0-100.0); MEAN PLATELET VOLUME 8.5 fL (7.4-10.4); PLATELET COUNT 324 10x3/uL (130-400); RBC 3.01 10x6/uL (4.00-5.40); RDW 17.5 % (11.5-14.5); WBC 22.9 10x3/uL (4.8-10.8)
--- NOTE | 2019-10-11 06:45 | NUR ---
ALERT AND ORIENTED, RESTING IN BED WITH EYES OPEN. NO C/O PAIN. NO S/S OF ACUTE DISTRESS NOTED. RIGHT SIDE FLACID. DENIS TO TOP OF HEAD, SITE CLEAN AND DRY WITHOUT DRAINAGE. ON 2.5L O2, NC. FEEDER. RIGHT SUBCLAVIAN CENTRAL LINE, NS INFUSING @ 75ML/HR. SITE PATENT WITHOUT REDNESS OR SWELLING. MEPELEX TO COCCYX, DRESSING C/D/I. SOSA CATHETER PRESENT. DENIES ANY NEEDS AT THIS TIME. CALL LIGHT IN REACH. WILL CONTINUE TO MONITOR.
[2019-10-11 07:18] VITALS: BP 129/70
[2019-10-11 07:23] LABS: EOSINOPHILS 2 % (0-7); LYMPHOCYTES 7 % (15-50); MONOCYTES 3 % (2-11); NEUTROPHILS 87 % (40-80); PLATELET ESTIMATE NORMAL
[2019-10-11 12:30] VITALS: BP 140/60
--- NOTE | 2019-10-11 14:05 | NUR ---
Rehab Prescreening Consult recieved and spoke to the CM Lindsey Reddy RN. She is a good candidate for rehab when she is able to tolerate the 3 hours daily of therapy that Medicare requires. Currently she is max assist for all ADL's. Rehab will continue to follow her and plan to accept when appropriate. Tenisha Holland RN Clinical Liaison, Rehab
--- NOTE | 2019-10-11 15:40 | NUR ---
OT NOTE: (AM) PT COMPLETED RUE PROM AND POSITIONING TOLERATED. PT HAS AROM FOR FINGER FLEXION/EXTENSION. PLATA FELT TRACE MUSCLE TWITCH WITH ELBOW FLEXION. PT EXHIBITED RUE GRASP. PT REQUIRED MOD A WITH SIDE ROLLING. PT COMPLETED FACE HYGIENE WITH SET UP. (PM) PT COMPLETED RUE AAROM WITH HAND AND ELBOW ROM . PT REQUIRED PROM TO RUE SHOULDER. PT COMPLETED POSITIONING AXS FOR UE AND LE TO DECREASE RISK OF SKIN BREAK DOWN AND PRESSURE WITH MOD/MAX A. [id number] THANK YOU,SHERLYN GORE
--- NOTE | 2019-10-11 16:57 | NUR ---
I have reviewed this patient and I concur with the Shift Assessment completed by the Licensed Practical Nurse today this shift.
[2019-10-11 17:03] VITALS: BP 140/56
--- NOTE | 2019-10-11 18:49 | NUR ---
ALERT AND ORIENTED, RESTING IN BED WITH EYES OPEN. NO C/O PAIN. NO S/S OF ACUTE DISTRESS NOTED. DENIES ANY NEEDS AT THIS TIME. CALL LIGHT IN REACH. WILL CONTINUE TO MONITOR.
--- NOTE | 2019-10-11 19:49 | NUR ---
PAITIENT LYING IN BED WITH EYES CLOTHES. NO ACUTE DISTRESS NOTED AT THIS TIME. PATIENT RESPONDS TO VOICES. ALERT AND ORIENTED.PATIENT SAYS SHE WOULD LIKE SOME WATER AT THIS TIME, BUT IS NOT IN ANY PAIN AND ANXIETY IS OKAY. NC @ 2.5L/MIN. R SUBCLAVIAN CENTRAL LINE W/ NS @75. BED RAILS X2, BED IN LOW POSITION. WILL CONTINUE TO MONITOR PATIENT.
[2019-10-11 20:00] VITALS: BP 164/56
[2019-10-12] VITALS: BP 171/54
[2019-10-12 04:00] VITALS: BP 159/55
[2019-10-12 06:12] LABS: BASOPHILS 0.1 % (0-2); EOSINOPHILS 1.9 % (0-7); IMMATURE GRANULOCYTES 0.5 % (0-5); LYMPHOCYTES 11.5 % (15-50); MCH 28.8 pg (26.0-34.0); MCHC 32.2 g/dL (31.0-37.0); MCV 89.6 fL (80.0-100.0); MEAN PLATELET VOLUME 8.4 fL (7.4-10.4); MONOCYTES 6.3 % (2-11); NEUTROPHILS 79.7 % (40-80); RDW 17.5 % (11.5-14.5)
[2019-10-12 06:16] LABS: HEMATOCRIT 43.2 % (36.0-48.0); HEMOGLOBIN 13.9 g/dL (12-16); PLATELET COUNT 186 10x3/uL (130-400); RBC 4.82 10x6/uL (4.00-5.40); WBC 12.9 10x3/uL (4.8-10.8)
[2019-10-12 06:30] LABS: ALBUMIN 1.5 g/dL (3.4-5.0); ALKALINE PHOSPHATASE 71 U/L (30-120); BILIRUBIN - TOTAL 0.12 mg/dL (0.2-1.3); CALC OSMOLALITY 263 mosm/kg (275-300); CALCIUM 8.1 mg/dL (8.5-10.1); CHLORIDE - SERUM 97 mmol/L (98-107); CREATININE - SERUM 0.5 mg/dL (0.6-1.3); GLUCOSE 96 mg/dL (74-106); PROTEIN - SERUM 4.9 g/dL (6.4-8.2); SODIUM 131 mmol/L (136-145); UREA NITROGEN 14 mg/dL (7-18); eGFR NON AFRICAN AMERICAN > 90 mL/min (90-120)
[2019-10-12 06:31] LABS: ALT (SGPT) 26 U/L (10-68)
--- NOTE | 2019-10-12 08:04 | NUR ---
REC'D IN WALKING ROUNDS AWAKE AND ALERT TO SELF. RESP EVEN AND UNLABORED WITH NO DISTRESS NOTED. CAN EXPRESS NEEDS AND WANTS. NO C/O NOTED OR VOICED. ASSESSMENT COMPLETED. C/L IN REACH.
[2019-10-12 08:27] VITALS: BP 148/55
--- NOTE | 2019-10-12 08:53 | NUR ---
PT MEDICATED WITH PRN NORCO FOR C/O HEADACHE AT THIS TIME. C/L IN REACH AT BEDSIDE.
[2019-10-12 12:04] VITALS: BP 132/60
[2019-10-12] MEDS ORDERED: PROTONIX40 MG PO (12:32)
[2019-10-12] MEDS ORDERED: CARAFATE1 G PO (12:32)
[2019-10-12] MEDS ORDERED: MIRALAX17 GM PO (12:32)
[2019-10-12] MEDS ORDERED: DECADRON4 MG PO (12:33)
--- NOTE | 2019-10-12 14:02 | NUR ---
I CALLED DR ROGERS OFFICE TO GET ORDERS FOR DECADRON MED ORDERS AND FOR FOLLOW UP. SPOKE WITH DR ROGERS AND NEW ORDERS WILL BE PLACED.
--- NOTE | 2019-10-12 14:02 | NUR ---
OT NOTE: PT DOING BETTER TODAY. PRACTICED BED MOB AND EDUCATED PT ON POSITIONING OF LES FOR INCREASED EASE OF MOBILITY. EOB SITTING WITH MIN ASSIST FOR BALANCE AND MAINTAINING MIDLINE; WT BEARING ACT WITH R UE; REACHING TASKS FOR TRUNK STRENGTHENING; PT PRESENTS WITH INCREASED HAT BLOCK BENCH HAND STRENGTH IN R HAND, AND TRACE MOVEMENT OF ELBOW FLEX..REMAINDER OF UE JOINTS WITH NO AROM AT THIS TIME. EDUCATED ON IMPORTANCE OF FINGER FLEX/EXT IN R HAND TO IMPROVE EDEMA; POSITIONED PT ON L SIDE AND ELEVATED R UE. HAMMAD RAY, OTR/L [phone]
[2019-10-12] MEDS ORDERED: DEXAMETHASONE2 MG PO (14:07)
--- NOTE | 2019-10-12 14:11 | NUR ---
I HAVE TRIED TO CALL [facility] FOR D/C OKAY FROM DR VALENTINE AND THE MESSAGE IS "ALL LINES ARE BUSY RIGHT NOW, PLEASE HANG UP AND TRY AGAIN".
--- NOTE | 2019-10-12 14:19 | MORECARE ---
CASE MANAGEMENT DISCHARGE SUMMARY PATIENT: FERMÍN WINSLOW UNIT: [id number] ADM DATE: 09/24/19 AGE: 79 : 42 SEX: F ROOM/BED: D.2228 AUTHOR: TOMASA,DOC PHYSICIAN: REFERRING PHYSICIAN: MARYANNE DELEON MD DATE OF SERVICE: 10/12/19 Discharge Plan Patient Name: FERMÍN WINSLOW Facility: [facility]:[place] : 1940 Planned Disposition: Home Anticipated Discharge Date: Discharge Date: Expected LOS: Initial Reviewer: [email or web address] Initial Review Date: 09/24/2019 Generated: 10/12/19 3:19 pm DCP- Discharge Planning Updated by [email or web address]: Laquita Lane on 10/01/19 11:[address] Received a call from patient's DIL, Lindsey Rahman. Lindsey states that she had brought a packet of living will and POA and needs it notorized. I called and spoke to Jody and she states she will have Heidy see the patient today. CM will continue to follow and assist with discharge planning/needs. Lindsey Rahman - DIL - [phone] DCP- Discharge Planning Updated by [email or web address]: Indiana Bautista on 09/26/19 8:[address] LATE ENTRY 09/25/19 Patient Name: FERMÍN WINSLOW Admission Status: ER Accout number: [id number] Admission Date: 09-24-2019 : 1940 Admission Diagnosis: Attending: STELLA Current LOS: 1 Anticipated DC Date: Planned Disposition: Home Primary Insurance: MEDICARE A & B Discharge Planning Comments: CM met with patient to complete initial dc planning assessment. CM educated patient on the CM role and verbal consent given by patient to complete assessment. Patient lives at home alone where she is independent with her care. At discharge patient plans to return home and feels this is a safe discharge. CM discussed availability of home health, rehab services, and medical equipment. Patient has a walker, cane and shower chair if needed. Patient states if tumor comes back cancer she wants [facility]. STEVEN completed Patient denied known discharge needs at this time. CM will continue to follow and will assist as needed with dc plans/needs. Manager Marketing Communication: Indiana Bautista DCPIA - Discharge Planning Initial Assessment Updated by [email or web address]: Indiana Bautista on 09/26/19 9:31 am * Is the patient Alert and Oriented? Yes * How many steps to enter\exit or inside your home? * PCP MEHRAN * [facility] - IN [place] * Preadmission Environment Home Alone * ADLs Independent * Other Equipment SHOWER CHAIR, WALKER, CANE * List name and contact numbers for known caregivers / representatives who currently or will assist patient after discharge: JOSH WINSLOW - DAUGHTER- [phone] MISTY WINSLOW - SON - [phone] * Verbal permission to speak to the caregivers and representatives has been obtained from the patient. Yes * Community resources currently utilized None * Additional services required to return to the preadmission environment? No * Can the patient safely return to the preadmission environment? Yes * Has this patient been hospitalized within the prior 30 days at any hospital? No Last DP export: 10/01/19 11:57 a Patient Name: FERMÍN WINSLOW Page [id number] at 1419 All edits/amendments must be made on the electronic document DICTATION DATE: 10/12/191418 FERTILIZER APPLICATOR: GEOVANNI 10/12/191418 RPT#: [id number] DC DATE: STATUS: ADM IN [facility] [address] [place] [address] END OF REPORT
--- NOTE | 2019-10-12 15:11 | NUR ---
I CALLED DR VALENTINE OFFICE FOR [facility] FOR D/C. GIVEN.
--- NOTE | 2019-10-12 15:55 | NUR ---
OT NOTE: PT REQUIRED MOD/MAX A WITH SIDE ROLLING. PT IS ABLE TO ASSIST WITH LUE TO GRAB SIDE RAIL WHEN ROLLING TO L SIDE. PT REQUIRED MOD A WITH SUPIEN TO SIT. PT EXHBITED INCREASED MIDDLE SCHOOL DIRECTOR STRENGTH IN RUE. PT EXHIBITED AROM IN FINGER FLEXION/EXTENSION OF R HAND. PT EXHIBITED TRACE IN SHOULDER MOVEMENT. PT REQUIRED MAX A WITH LB HYGIENE TASKS. [phone] THANK YOU,SHERLYN GORE
[2019-10-12 16:48] VITALS: BP 146/58
--- NOTE | 2019-10-12 17:08 | NUR ---
I have reviewed this patient and I concur with the Shift Assessment completed by the Licensed Practical Nurse today this shift.
--- NOTE | 2019-10-12 17:25 | NUR ---
RIGHT SUBCLAVIAN D/C WITH TIP INTACT WITHOUT DIFFICULTY. 16CM LONG. TOLERATED WITHOUT C/O PAIN OR DISCOMFORT.
--- NOTE | 2019-10-12 18:35 | NUR ---
DC DOWN TO REHAB AT THIS TIME. VOICE UNDERSTANDING OF DC ORDERS. IV DC. STABLE CONDIITON UPON DC.
--- NOTE | 2019-10-13 18:30 | MORECARE ---
CASE MANAGEMENT DISCHARGE SUMMARY PATIENT: FERMÍN WINSLOW UNIT: [id number] ADM DATE: 09/24/19 AGE: 79 : 42 SEX: F ROOM/BED: D.2228 AUTHOR: TOMASA,DOC PHYSICIAN: REFERRING PHYSICIAN: MARYANNE DELEON MD DATE OF SERVICE: 10/13/19 Discharge Plan Patient Name: FERMÍN WINSLOW Facility: [facility]:[place] : 1940 Planned Disposition: Home Anticipated Discharge Date: Discharge Date: 10/12/2019 Expected LOS: Initial Reviewer: [email or web address] Initial Review Date: 09/24/2019 Generated: 10/13/19 7:29 pm Comments DCP- Discharge Planning Updated by [email or web address]: Stephani Reddy on 10/12/19 1:[address] Patient will be discharging to inpatient rehab at [facility], I spoke with the patient and her daughter in law Diane to let her know. IMM served and explained DCP- Discharge Planning Updated by [email or web address]: Laquita Lane on 10/01/19 11:[address] Received a call from patient's DIL, Diane aRhman. Diane states that she had brought a packet of living will and POA and needs it notorized. I called and spoke to Jody and she states she will have Heidy see the patient today. CM will continue to follow and assist with discharge planning/needs. Diane Rahman - DIL - [phone] DCP- Discharge Planning Updated by [email or web address]: Indiana Bautista on 09/26/19 8:[address] LATE ENTRY 09/25/19 Patient Name: FERMÍN WINSLOW Admission Status: ER Accout number: [id number] Admission Date: 09-24-2019 : 1940 Admission Diagnosis: Attending: STELLA Current LOS: 1 Anticipated DC Date: Planned Disposition: Home Primary Insurance: MEDICARE A & B Discharge Planning Comments: CM met with patient to complete initial dc planning assessment. CM educated patient on the CM role and verbal consent given by patient to complete assessment. Patient lives at home alone where she is independent with her care. At discharge patient plans to return home and feels this is a safe discharge. CM discussed availability of home health, rehab services, and medical equipment. Patient has a walker, cane and shower chair if needed. Patient states if tumor comes back cancer she wants [facility]. STEVEN completed Patient denied known discharge needs at this time. CM will continue to follow and will assist as needed with dc plans/needs. Aircraft Engine Technician: Indiana Bautista DCPIA - Discharge Planning Initial Assessment Updated by [email or web address]: Indiana Bautista on 09/26/19 9:31 am * Is the patient Alert and Oriented? Yes * How many steps to enter\exit or inside your home? * PCP MEHRAN * [facility] - IN [place] * Preadmission Environment Home Alone * ADLs Independent * Other Equipment SHOWER CHAIR, WALKER, CANE * List name and contact numbers for known caregivers / representatives who currently or will assist patient after discharge: JOSH WINSLOW - DAUGHTER- [phone] MISTY WINSLOW - SON - [phone] * Verbal permission to speak to the caregivers and representatives has been obtained from the patient. Yes * Community resources currently utilized None * Additional services required to return to the preadmission environment? No * Can the patient safely return to the preadmission environment? Yes * Has this patient been hospitalized within the prior 30 days at any hospital? No Coverage Notice Reviewer: [email or web address] Liss Reddy Notice Issued Date-Time: 10/12/2019 14:05 Notice Type: IM Discharge Notice Notice Delivered To: Patient Relationship to Patient: Machinist Wood Name: diane Delivery Method: HAND - Hand Delivered [place] Days: Prior Verbal Notification: Recipient Understood Notice: Yes Recipient Signature: Yes Med Rec Note Co-signed by Attending: Coverage Notice Comment: imm served with patient I also called Diane at the patients request Last DP export: 10/12/19 1:20 p Patient Name: FERMÍN WINSLOW Page [id number] at 1830 All edits/amendments must be made on the electronic document DICTATION DATE: 10/13/191828 REGISTERED DIETETIC TECHNICIAN: GEOVANNI 10/13/191828 RPT#: [id number] DC DATE:10/12/19 STATUS: DIS IN [facility] [address] [place] [address] END OF REPORT
== END 2019-10-12 18:37 | DRG 25 ==
LOC: D.ER 14:38 → D.ICU 17:48 → D.MS 17:48 → D.CVICU 17:48 → D.ICU 09-28 12:14 → D.MS 09-29 18:15 → D.ICU 10-04 13:39 → D.CVICU 10-04 19:10 → D.ICU 10-06 01:19 → D.MS 10-10 14:17
PROVIDERS: Family Medicine; Internal Medicine Nephrology; Neurological Surgery; Specialist; ADMIT Family Medicine; ATTEND Family Medicine
PROC: 0DB98ZX Excision of Duodenum, Via Natural or Artificial Opening Endoscopic, Diagnostic (ICD-10-PCS; 2019-09-28)
PROC: 0D768ZZ Dilation of Stomach, Via Natural or Artificial Opening Endoscopic (ICD-10-PCS; 2019-09-28)
PROC: 0BBF3ZX Excision of Right Lower Lung Lobe, Percutaneous Approach, Diagnostic (ICD-10-PCS; 2019-09-29)
PROC: 00B00ZZ Excision of Brain, Open Approach (ICD-10-PCS; principal; 2019-10-04 07:30)
DX: C79.31 Secondary malignant neoplasm of brain (principal); J18.9 Pneumonia, unspecified organism; G93.6 Cerebral edema; K29.01 Acute gastritis with bleeding; D62 Acute posthemorrhagic anemia; E87.1 Hypo-osmolality and hyponatremia; F17.203 Nicotine dependence unspecified, with withdrawal; D50.9 Iron deficiency anemia, unspecified; N28.89 Other specified disorders of kidney and ureter; I10 Essential (primary) hypertension; I25.10 Atherosclerotic heart disease of native coronary artery without angina pectoris; F41.8 Other specified anxiety disorders; K22.70 Barrett's esophagus without dysplasia; K31.9 Disease of stomach and duodenum, unspecified

== ENCOUNTER 2019-10-12 18:50 | Inpatient (IN) | payer MEDICARE, OTHER ==
[~2019-10-12] VITALS: Ht 162.6 cm; Wt 49.9 kg
[~2019-10-12 18:50] MED LIST changes: +BACLOFEN10 MG PO; +CARAFATE1 G PO; +DECADRON4 MG PO; +DEXAMETHASONE2 MG PO; +ECOTRIN325 MG PO; +LIPITOR40 MG PO; +MIRALAX17 GM PO; +PROTONIX40 MG PO
--- NOTE | 2019-10-12 19:45 | NUR ---
GREETED PATIENT AND INTRODUCED MYSELF HER NURSE. PATIENT IS UPSET AT THIS TIME AND ASKING FOR HER MEDICATION. THIS NURSE EXPLAINED THAT I WOULD HAVE TO GET HER DISCHARGE MEDICATIONS FROM [facility]IRS AND PUT THEM INTO THE COMPUTER PRIOR TO ADMINISTRATION AND THEY WOULD HAVE TO BE VERIFIED BY PHARMACY. PATIENT UNDERSTOOD. RESPIRATIONS EVEN. NO S/S OF DISTRESS. O2 AT 2L IN USE VIA NC.
[2019-10-12 20:47] VITALS: BP 153/55
[2019-10-12 22:25] VITALS: BP 153/55; BMI 18.9
--- NOTE | 2019-10-13 02:52 | NUR ---
PT RESTING QUIETLY WITH EYES CLOSED. RESPIRATIONS EVEN. NO S/S OF DISTRESS. O2 AT 2L IN USE VIA NC. CALL LIGHT IN REACH.
[2019-10-13 03:05] LABS: BILIRUBIN NEGATIVE (NEGATIVE); GLUCOSE NEGATIVE (NEGATIVE); KETONE NEGATIVE (NEGATIVE); NITRITE NEGATIVE (NEGATIVE); SPECIFIC GRAVITY 1.005 (1.005-1.020); UROBILINOGEN NORMAL (NORMAL)
[2019-10-13 06:56] LABS: HEMATOCRIT 27.2 % (36.0-48.0); HEMOGLOBIN 8.6 g/dL (12-16); MCH 28.4 pg (26.0-34.0); MCHC 31.6 g/dL (31.0-37.0); MCV 89.8 fL (80.0-100.0); MEAN PLATELET VOLUME 8.2 fL (7.4-10.4); PLATELET COUNT 295 10x3/uL (130-400); RBC 3.03 10x6/uL (4.00-5.40); RDW 17.2 % (11.5-14.5); WBC 24.7 10x3/uL (4.8-10.8)
[2019-10-13 06:58] LABS: CALC OSMOLALITY 255 mosm/kg (275-300); CALCIUM 8.1 mg/dL (8.5-10.1); CARBON DIOXIDE 25.6 mmol/L (21.0-32.0); CHLORIDE - SERUM 94 mmol/L (98-107); CREATININE - SERUM 0.4 mg/dL (0.6-1.3); GLUCOSE 106 mg/dL (74-106); POTASSIUM - SERUM 3.8 mmol/L (3.5-5.1); SODIUM 127 mmol/L (136-145); UREA NITROGEN 15 mg/dL (7-18); eGFR NON AFRICAN AMERICAN > 90 mL/min (90-120)
[2019-10-13 07:12] LABS: EOSINOPHILS 2 % (0-7); LYMPHOCYTES 16 % (15-50); NEUTROPHILS 81 % (40-80)
[2019-10-13 07:13] LABS: PLATELET ESTIMATE NORMAL
[2019-10-13 08:00] VITALS: BP 121/58
--- NOTE | 2019-10-13 08:00 | NUR ---
AWAKE AND ALERT IN BED EATING BREAKFAST, GIVEN PAIN MED EARLIER, PAIN HAS EASED, DENIES ANY NEEDS AT THIS TIME, C/L AND H2O IN REACH
--- NOTE | 2019-10-13 11:00 | NUR ---
I have reviewed this patient and I concur with the Shift Assessment completed by the Licensed Practical Nurse today this shift.
--- NOTE | 2019-10-13 12:00 | NUR ---
RESTING IN BED PAIN MED GIVEN, DENIES ANY OTHER NEEDS AT THIS TIME, C/L AND H2O IN REACH
[2019-10-13 14:04] VITALS: Ht 162.6 cm; Wt 49.9 kg
--- NOTE | 2019-10-13 15:06 | NUR ---
CARE TEAM MEETING: PATIENT IS NEW TO UNIT AND WILL BE RA AT NEXT MEETING. HER PCP IS DR. LAURENT. DME AT HOME IS A SHOWER CHAIR, WALKER AND A CANE. PATIENT HAD MENTIONED [facility] POSSIBLE AT DISCHARGE . WILL CONTINUE TO FOLLOW WITH PATIENT.
--- NOTE | 2019-10-13 16:00 | NUR ---
PT REPEATS OVER AND OVER "PLEASE MAKE IT STOP, ANXIETY, NEED ANXIETY MEDICINE". CALLED DR. JONES AND LEFT MESSAGE ON CELL PHONE. C/L AND H2O IN REACH.
--- NOTE | 2019-10-13 18:03 | NUR ---
PT. STILL REPEATING OVER AND OVER " PLEASE MAKE IT STOP, ANXIETY MEDICINE, PLEASE HELP ME". CALLED DR JONES X2. C/L AND H2O IN REACH
--- NOTE | 2019-10-13 18:42 | NUR ---
GREETED PATIENT AND INTRODUCED MYSELF HER NURSE. PATIENT IS [id number] CALLING OUT FOR HELP AND SAYING SHE IS SCARED. REASSURED PATIENT THAT SHE WAS SAFE AND WE WOULD BE HERE TO TAKE CARE OF HER. RESPIRATIONS EVEN. NO S/S OF DISTRESS. CALL LIGHT IN REACH.
[2019-10-13 19:45] VITALS: BP 147/60
--- NOTE | 2019-10-14 00:32 | NUR ---
PT RESTING QUIETLY WITH EYES CLOSED. RESPIRATION EVEN. NO S/S OF DISTRESS. O2 AT 2L IN USE VIA NC. CALL LIGHT IN REACH.
--- NOTE | 2019-10-14 03:22 | NUR ---
PT AWAKE AT THIS TIME. PRN PAIN MEDICATION ADMINISTERED FOR PAIN 10/10 IN HEAD. FIXED PT A ENSURE SHAKE WITH VANILLA ICE CREAM FOR ADDED NUTRITION. CALL LIGHT IN REACH.
--- NOTE | 2019-10-14 05:34 | NUR ---
PT MACHINE SAND MIXER LIGHT AND SAID THAT SHE WAS WET. CHECKED SOSA CATH AND FLUSHED AND REMOVED A SMALL BLOOD CLOT. DEFLATED AND REINFLATED SOSA CATH AND MEET WITH RESISTANCE TRYING TO REINSERT. DC'D SOSA AND ATTEMPTED TO INSERT NEW SOSA CATHETHER. MET RESISTANCE AND STOPPED TO AVOID TRAUMA TO PATIENT. PATIENT TOLERATED PROCEDURE.
[2019-10-14 05:47] LABS: HEMATOCRIT 25.9 % (36.0-48.0); HEMOGLOBIN 8.3 g/dL (12-16)
--- NOTE | 2019-10-14 06:18 | NUR ---
PT RESTING QUIETLY WITH EYES CLOSED. O2 AT 2L IN USE VIA NC. RESPIRATIONS EVEN. NO S/S OF DISTRESS. CALL LIGHT IN REACH.
[2019-10-14 07:50] VITALS: BP 146/44
--- NOTE | 2019-10-14 15:29 | NUR ---
PT RESTIGN IN BED WITH EYES OPEN CALL LIGHT IN REACH NO PROBLEMS WILL MONITER
[2019-10-14 19:00] VITALS: BP 112/45
--- NOTE | 2019-10-14 19:08 | NUR ---
PT RESTING IN BED WITHT EYES OEPN CALL LIGHT IN REACH WILL MONITER
--- NOTE | 2019-10-14 19:43 | NUR ---
AWAKE AND MEDICATED FOR C/O ANXIETY. SEE MAR. RESPIRATIONS UNLABORED. NO ACUTE DISTRESS NOTED. SAFETY MEASURES IN PLACE.
--- NOTE | 2019-10-15 01:46 | NUR ---
AWAKE AND IN BED WITH RESPIRATIONS UNLABORED. CALLS EVERY 20-30 MINUTES TO BE CHANGED DUE TO BEING INCONTINENT OF URINE. DENIS INTACT TO TOP OF HEAD AT CRANIOTOMY SITE. RIGHT ARM AND RIGHT LEG FLACCID. O2/2L ON PER NASAL CANNULA. CALL JOSUE IN REACH.
--- NOTE | 2019-10-15 02:54 | NUR ---
PATIENT HAS NOW VOIDED GREATER THAN 20 TIMES THIS SHIFT WITH VOIDING 100ML OR GREATER EACH TIME. BLADDER SCAN DONE AND SHOWS 0 ML RETENTION. MESSAGE LEFT FOR DR JONES ON ROUNDING SHEET.
--- NOTE | 2019-10-15 05:47 | NUR ---
CONTINUES TO VOID EVERY 30 MINUTES OR SO. HAS USED BEDPAN SINCE 329 INSTEAD OF VOIDING INCONTINENT. HAD ONE MEDIUM BM. REMAINS IN BED WITH RESPIRATIONS UNLABORED. HAS NOT SLEPT THIS SHIFT.
[2019-10-15 06:57] LABS: CALC OSMOLALITY 268 mosm/kg (275-300); CALCIUM 8.2 mg/dL (8.5-10.1); CARBON DIOXIDE 30.1 mmol/L (21.0-32.0); CHLORIDE - SERUM 96 mmol/L (98-107); CREATININE - SERUM 0.4 mg/dL (0.6-1.3); GLUCOSE 105 mg/dL (74-106); POTASSIUM - SERUM 4.3 mmol/L (3.5-5.1); SODIUM 132 mmol/L (136-145); UREA NITROGEN 23 mg/dL (7-18); eGFR NON AFRICAN AMERICAN > 90 mL/min (90-120)
[2019-10-15 07:08] LABS: HEMATOCRIT 26.3 % (36.0-48.0); HEMOGLOBIN 8.3 g/dL (12-16); MCH 28.4 pg (26.0-34.0); MCHC 31.6 g/dL (31.0-37.0); MCV 90.1 fL (80.0-100.0); MEAN PLATELET VOLUME 8.3 fL (7.4-10.4); PLATELET COUNT 341 10x3/uL (130-400); RBC 2.92 10x6/uL (4.00-5.40); RDW 17.4 % (11.5-14.5); WBC 22.8 10x3/uL (4.8-10.8)
--- NOTE | 2019-10-15 09:19 | NUR ---
The patient is getting up to go to the gym and she requests something for anxiety, she requested pain med also, but will provide klonopin po now, see SALUD, will provide pain med in a while. See SALUD.
[2019-10-15 09:50] VITALS: BP 134/52
--- NOTE | 2019-10-15 11:31 | NUR ---
The patient c/o pain, rates it 8/10. See MAR.
[2019-10-15 13:32] LABS: EOSINOPHILS 1 % (0-7); LYMPHOCYTES 14 % (15-50); MONOCYTES 8 % (2-11); NEUTROPHILS 76 % (40-80); PLATELET ESTIMATE NORMAL
[2019-10-15 13:33] LABS: ANISOCYTOSIS OCC; HYPOCHROMASIA OCC; ROULEAUX OCC
--- NOTE | 2019-10-15 14:37 | NUR ---
The patient asked to see if she can get an increase on her klonopin. She has a prn every 8 hours at home she takes it at bedtime only. Shelley Hooper LPN said she got an increase from hs to q8hprn yesterday. Offered to get her a pain med at 1500 and then do the Klonopin at 1600.
--- NOTE | 2019-10-15 14:45 | NUR ---
Nutrition Follow-up: Pt reports good appetite and drinking Ensure, although PO intake for yesterday 25-50% per record. Diet: Regular, Ensure TID Wt: 110# (10/12) Last BM: 10/14 Labs noted: Na 132, Ca 8.2 Meds noted: Floranex, vitamin B12, Carafate, Protonix -Encourage PO intake and honor food preferences. -Monitor wt. -RD following.
--- NOTE | 2019-10-15 15:00 | NUR ---
The patient is sleeping did not awaken her to give her a pain med.
--- NOTE | 2019-10-15 16:09 | NUR ---
The patient requests her Klonopin for anxiety, see SALUD. She asked for her pain med with the Klonopin, explained to her that I will provide her one in a while as she just had the Klonopin.
--- NOTE | 2019-10-15 17:01 | NUR ---
The patient says her pain is less.
[2019-10-15 19:45] VITALS: BP 125/41
--- NOTE | 2019-10-15 19:45 | NUR ---
PATIENT RECEIVED SITTING UP IN BED. ASSESSMENT & VITAL SIGNS DONE. NO C.O PAIN OR DISTRESS AT THIS TIME. ALARM ON. BED LOW. CALL LIGHT WITHIN REACH. WILL CONTINUE TO MONITOR.
--- NOTE | 2019-10-15 23:43 | NUR ---
PATIENT YELLING "I GOTTA PEE! I'M GOING TO DO IT IN BED." PATIENT CALL LIGHT IN HAND. PATIENT FORFOT TO USE IT. PATIENT PLACED ON BED OROZCO. VOID ONLY. PERIAREA CLEANED. CALMOSEPTINE APPLIED TO COCCYX. BED LOW. ALARM ON. CALL LIGHT WITHIN REACH. WILL CONTINUE TO MONITOR.
--- NOTE | 2019-10-16 01:00 | NUR ---
PATIENT USED CALL LIGHT FOR ASSIST. PATIENT NEEDED TO VOID. BED OROZCO PLACED UNDER PATIENTS BUTT. PATIENT HAD MEDIUM VOID. PERIAREA CLEANED & CALMOSEPTINE APPLIED TO COCCYX. BED LOW. ALARM ON. CALL LGIGHT & BEDSIDE TABLE WITHIN REACH. WILL CONTINUE TO MONITOR.
--- NOTE | 2019-10-16 02:35 | NUR ---
PATIENT USED CALL LIGHT FOR ASSIST. PATIENT PLACED ON BED OROZCO. VOID ONLY. PATIENT PERIAREA CLEANED. CALMOSEPTINE APPLIED TO COCCYX. PILLOW PLACED UNDER BACK TO KEEP COCCYX OFF SURFACE. BED LOW. ALARM ON. CALL LIGHT WITHIN REACH. WILL CONTINUE TO MONITOR.
--- NOTE | 2019-10-16 03:55 | NUR ---
PATIENT USED CALL LIGHT FOR ASSIST. PATIENT PLACED ON BED OROZCO. VOID ONLY. BED LOW. ALARM ON. CALL LIGHT WITHIN REACH. WILL CONTINUE TO MONITOR.
[2019-10-16 07:46] VITALS: BP 141/46
--- NOTE | 2019-10-16 08:56 | NUR ---
INTRODUCED SELF TO PT. AND WROTE NAME ON BOARD, PT. DENIES ANY NEEDS AT THIS TIME, C/L AND H2O IN REACH.
--- NOTE | 2019-10-16 12:03 | NUR ---
PATIENT RESTING IN BED WITH EYES CLOSED, NO S/S OF DISTRESS NOTED, C/L AND H2O IN REACH.
--- NOTE | 2019-10-16 14:55 | NUR ---
PATIENT REQUESTED PRN NORCO FOR HEADACHE. GIVEN
[2019-10-16 20:10] VITALS: BP 121/40
--- NOTE | 2019-10-16 20:10 | NUR ---
PATIENT USED CALL LIGHT FOR ASSIST. PATIENT PLACED ON BED OROZCO. VOID ONLY. PERIAREA CLEANED. CALMOSEPTINE APPLIED TO COCCYX. BED LOW. CALL LIGHT & BEDSIDE TABLE WITHIN REACH. WILL CONTINUE TO MONITOR.
--- NOTE | 2019-10-16 20:10 | NUR ---
PATIENT RECEIVED SITTING UP IN BED WATCHING TV. VITAL SIGNS & ASSESSMENT. PAIN MEDICATION GIVEN EARLIER EFFECTIVE. BED LOW. ALARM ON. CALL LIGHT WITHIN REACH. WILL CONTINUE TO MONITOR.
--- NOTE | 2019-10-16 20:20 | NUR ---
PATIENT RECEIVED SITTING UP IN BED. ALARM ON. ASSESSMENT & VITAL SIGNS DONE. PATIENT PLACED ON BED OROZCO. VOID ONLY. PERIAREA CLEANED. CALMOSEPTINE APPLIED TO COCCYX. PATIENT TURNED ON RIGHT SIDE, PILLOW UNDER HER. BED LOW. ALARM ON. CALL LIGHT & SIDE TABLE WITHIN REACH. WILL CONTINUE TO MONITOR.
--- NOTE | 2019-10-16 23:46 | NUR ---
I have reviewed this patient and I concur with the Shift Assessment completed by the Licensed Practical Nurse today this shift.
--- NOTE | 2019-10-17 00:55 | NUR ---
PATIENT USED CALL LIGHT FOR ASSIST. PATIENT PLACED ON BED OROZCO. VOID & BM. BED LOW. BEDSIDE TABLE & CALL LIGHT WITHIN REACH. WILL CONTINUE TO MONITOR.
[2019-10-17 07:59] VITALS: BP 136/50
--- NOTE | 2019-10-17 09:02 | NUR ---
INTRODUCED SELF TO PATIENT AND PUT NAME ON BOARD, PT. RESTING IN BED, HOB ELEVATED AT 30 DEGREES, DENIES ANY NEEDS OR PAIN AT THIS TIME, C/L AND H2O IN REACH.
--- NOTE | 2019-10-17 12:00 | NUR ---
RESTING IN BED WITH EYES CLOSED, NO S/S OF DISTRESS NOTED, C/L AND H2O IN REACH.
--- NOTE | 2019-10-17 20:00 | NUR ---
PATIENT RECEIVED LAYING IN BED. ASSESSMENT & VITAL SIGNS DONE. BED LOW. ALARM ON. CALL LIGHT WITHIN REACH. WILL CONTINUE TO MONITOR.
[2019-10-17 20:12] VITALS: BP 142/45
--- NOTE | 2019-10-17 21:11 | NUR ---
PATIENT REQUEST FOR PAIN MEDICATION & CLONIPINE GIVEN. BED LOW. ALARM ON. CALL LIGHT WITHIN REACH. WILL CONTINUE TO MONITOR.
--- NOTE | 2019-10-17 22:38 | NUR ---
PATIENT EYES CLOSED. RESPIRATIONS 18 & EVEN. BED LOW. ALARM ON. CALL LIGHT WITHIN REACH. WILL CONTINUE TO MONITOR.
--- NOTE | 2019-10-18 01:58 | NUR ---
PATIENT USED CALL LIGHT FOR ASSIST. PATIENT HEAD LOWERED. TURNED TO RIGHT SIDE. BED OROZCO PLACED UNDERNEATH. PATIENT SUPINE. PATIENT TURNED TO RIGHT SIDE. BED OROZCO REMOVED. VOID ONLY. PATIENT CLEANED. CALMOSEPTINE APPLIED TO COCCYX. PATIENT RETURNED TO SUPINE POSITION. PILLOW PLACED UNDER LEFT BUTTOCK. LEGS BRIDGED ON PILLOW. CALL LIGHT WITHIN REACH. WILL CONTINUE TO MONITOR.
--- NOTE | 2019-10-18 02:10 | NUR ---
I have reviewed this patient and I concur with the Shift Assessment completed by the Licensed Practical Nurse today this shift.
[2019-10-18 05:47] LABS: BASOPHILS 0.3 % (0-2); EOSINOPHILS 1.2 % (0-7); HEMATOCRIT 24.4 % (36.0-48.0); IMMATURE GRANULOCYTES 3.3 % (0-5); LYMPHOCYTES 10.7 % (15-50); MCH 27.5 pg (26.0-34.0); MCHC 29.9 g/dL (31.0-37.0); MCV 92.1 fL (80.0-100.0); MEAN PLATELET VOLUME 8.5 fL (7.4-10.4); MONOCYTES 7.4 % (2-11); NEUTROPHILS 77.1 % (40-80); RBC 2.65 10x6/uL (4.00-5.40); RDW 17.4 % (11.5-14.5); WBC 18.7 10x3/uL (4.8-10.8)
[2019-10-18 06:02] LABS: CALC OSMOLALITY 272 mosm/kg (275-300); CALCIUM 8.6 mg/dL (8.5-10.1); CHLORIDE - SERUM 97 mmol/L (98-107); CREATININE - SERUM 0.6 mg/dL (0.6-1.3); GLUCOSE 137 mg/dL (74-106); POTASSIUM - SERUM 4.8 mmol/L (3.5-5.1); SODIUM 132 mmol/L (136-145); UREA NITROGEN 30 mg/dL (7-18); eGFR NON AFRICAN AMERICAN > 90 mL/min (90-120)
[2019-10-18 06:11] LABS: HEMOGLOBIN 7.3 g/dL (12-16); PLATELET COUNT 511 10x3/uL (130-400)
--- NOTE | 2019-10-18 06:12 | NUR ---
MARISELA IN LAB CALLED CRITICAL HGB VALUE 7.3, READ BACK AND VERIFIED.
[2019-10-18 07:55] VITALS: BP 127/47
--- NOTE | 2019-10-18 12:15 | NUR ---
IV STARTED WITH 22 GAUGE X 1 ATTEMPT BY VASCULAR NURSE. PREMIT FOR ADMINISTRATION OF BLOOD SIGNED BY PT
--- NOTE | 2019-10-18 15:10 | NUR ---
FIRST UNIT PRBCS STARTED. VS OBTAINED AND CHARTED.
--- NOTE | 2019-10-18 18:57 | NUR ---
GREETED PATIENT AND INTRODUCED MYSELF HER NURSE. RESPIRATIONS EVEN. NO S/S OF DISTRESS. O2 AT 2L IN USE VIA NC. BEDSIDE SHIFT REPORT COMPLETE FROM OFF GOING NURSE. PATIENT DENIES ANY NEEDS AT THIS TIME. CALL LIGHT IN REACH.
[2019-10-18 19:30] VITALS: BP 141/51
--- NOTE | 2019-10-19 00:54 | NUR ---
PT RESTING QUIETLY WITH EYES OPEN. O2 AT 2L IN USE. RESPIRATIONS EVEN. NO S/S OF DISTRESS. CALL LIGHT IN REACH.
--- NOTE | 2019-10-19 06:33 | NUR ---
PT AWAKE LAYING IN BED RESTING QUIETLY. 2L O2 VIA NC IN USE. RESPIRATIONS EVEN. NO S/S DISTRESS. CALL LIGHT IN REACH.
[2019-10-19 07:00] VITALS: BP 123/45
--- NOTE | 2019-10-19 07:30 | NUR ---
REPORT RECEIVED. PT HAS DENIS TO BACK OF LEFT SIDE OF HEAD PER CRANIOTOMY. SHE IS FLACCID ON HER RIGHT SIDE. SHE IS WEARING O2 AT 2L. SHE HAS A RIGHT FOREARM IV THAT IS SALINE LOC. PT HAS ASKED FOR HER ANXIETY MEDICATION AND PAIN MEDICATION. WILL GIVE IF AVAILABLE.
--- NOTE | 2019-10-19 08:00 | NUR ---
ASSISTED PT WITH BREAKFAST IN OPENING CONTAINERS AND CUTTING FOOD UP. TOOK MEDICATIONS WITH NO ISSUES. NO OTHER NEEDS AT THIS TIME. WILL CONTINUE TO MONITOR.
--- NOTE | 2019-10-19 10:20 | NUR ---
PT WITH THERAPY.
--- NOTE | 2019-10-19 12:09 | NUR ---
VOIDED ON BEDPAN. NOW SITTING UP EATING LUNCH. CALL LIGHT IN REACH.
--- NOTE | 2019-10-19 12:54 | NUR ---
PAIN MEDICATION GIVEN PER REQUEST.
--- NOTE | 2019-10-19 19:10 | NUR ---
GREETED PATIENT AND INTRODUCED MYSELF HER NURSE. PATIENT IS RESTING QUIETLY AT THIS TIME. O2 WAS OFF WHEN SAW PATIENT. PUT O2 BACK ON AT 2L VIA NC. BEDSIDE SHIFT REPORT COMPLETE BY OFF GOING NURSE. PT DENIES ANY FURTHER NEEDS AT THIS TIME. CALL LIGHT IN REACH.
[2019-10-19 23:05] VITALS: BP 127/52
--- NOTE | 2019-10-20 05:50 | NUR ---
PT RESTING QUIETLY WITH EYES CLOSED. RESPIRATIONS EVEN. NO S/S OF DISTRESS. O2 AT 3L IN USE VIA NC. CALL LIGHT IN REACH.
--- NOTE | 2019-10-20 06:55 | NUR ---
ALERT AND ORIENTED, RESTING IN BED. NO C/O PAIN. NO S/S OF ACUTE DISTRESS NOTED. ON 3L O2, NC. IV TO RIGHT FOREARM, SL. SITE PATENT WITHOUT REDNESS OR SWELLING. 13 DENIS TO HEAD, OPEN TO AIR. SITE CLEAN AND DRY WITHOUT DRAINAGE. RIGHT ARM WEAKNESS. STAGE 1 PRESSURE ULCER TO BUTTOCKS. DENIES ANY NEEDS AT THIS TIME. CALL LIGHT IN REACH. WILL CONTINUE TO MONITOR.
[2019-10-20 07:20] LABS: HEMATOCRIT 34.4 % (36.0-48.0); HEMOGLOBIN 10.8 g/dL (12-16); MCH 27.7 pg (26.0-34.0); MCHC 31.4 g/dL (31.0-37.0); MCV 88.2 fL (80.0-100.0); MEAN PLATELET VOLUME 8.7 fL (7.4-10.4); PLATELET COUNT 434 10x3/uL (130-400); RDW 18.8 % (11.5-14.5); WBC 19.5 10x3/uL (4.8-10.8)
[2019-10-20 07:35] LABS: CALC OSMOLALITY 278 mosm/kg (275-300); CALCIUM 8.8 mg/dL (8.5-10.1); CHLORIDE - SERUM 98 mmol/L (98-107); CREATININE - SERUM 0.4 mg/dL (0.6-1.3); GLUCOSE 113 mg/dL (74-106); POTASSIUM - SERUM 4.7 mmol/L (3.5-5.1); SODIUM 135 mmol/L (136-145); UREA NITROGEN 34 mg/dL (7-18); eGFR NON AFRICAN AMERICAN > 90 mL/min (90-120)
[2019-10-20 08:00] VITALS: BP 92/50
--- NOTE | 2019-10-20 08:44 | NUR ---
PATIENT C/O OF BEING ANXIOUS. GAVE PATIENT KLONOPIN PER PHYSICIAN ORDERS. CALL LIGHT IN REACH. WILL CONTINUE TO MONITOR.
[2019-10-20 09:46] LABS: LYMPHOCYTES 18 % (15-50); MONOCYTES 3 % (2-11); NEUTROPHILS 79 % (40-80); PLATELET ESTIMATE NORMAL
--- NOTE | 2019-10-20 12:00 | NUR ---
I have reviewed this patient and I concur with the Shift Assessment completed by the Licensed Practical Nurse today this shift.
--- NOTE | 2019-10-20 13:01 | NUR ---
PATIENT C/O PAIN, GENERALIZED. GAVE NORCO 10 PER PHYSICIAN ORDERS. PAIN /10. CALL LIGHT IN REACH. WILL CONTINUE TO MONITOR.
--- NOTE | 2019-10-20 14:28 | NUR ---
Nutrition follow-up: Diet: Regular with Ensure TID PO intake ~50% average of last 9 meals +BM Labs reviewed Will continue to provide food choices and honor food preferences. RDN following.
--- NOTE | 2019-10-20 16:13 | NUR ---
CARE TEAM MEETING: PATIENT IS PROGRESSING IN THERAPY. AND WILL BE RA AT NEXT MEETING. TENTIVE DISCHARGE DATE IS 10/29/19. WILL CONTINUE TO FOLLOW WITH PATIENT.
--- NOTE | 2019-10-20 16:29 | RHP ---
PATIENT: FERMÍN WINSLOW MEDICAL RECORD: [id number] ACCOUNT: [id number] LOCATION:[id number] : [id number] ADMISSION DATE: 10/12/19 REHABILITATION HISTORY AND PHYSICAL EXAMINATION POST ADMISSION PHYSICIAN EXAMINATION ADMITTING DIAGNOSIS: Nontraumatic brain injury. HISTORY OF PRESENT ILLNESS: The patient is a 79-year-old female patient, who presents secondary to a nontraumatic brain injury. She had a left posterior frontal, left occipital and right posterior frontal lesions associated with vasogenic edema status post stereotactic craniotomy. The patient presented to the ED with family due to right-sided weakness that have been noted over the previous week and suddenly got worsened. The patient stated that she had been having increasing amount of weakness of her right upper extremity for about a week, occurred suddenly and worsened with no known precipitant. Initial imaging in the ED, revealed a right lower lobe pneumonia and lesion of the left occipital lobe. Neurosurgery was consulted. A head CT in the ER showed a left posterior frontal, left occipital and right posterior frontal lobe lesions associated with vasogenic edema. She had been unable to perform ADLs due to right hand weakness. She is admitted to the hospital for pneumonia and further workup. MRI without contrast was done, which showed three peripheral enhancing lesions in the brain, largest in the left occipital lobe. Did note vasogenic edema with these areas. She had a lung biopsy for diagnosing, has had oncology consult, has been followed during her acute stay, she underwent a craniotomy on 10/04/[address] Bahena with hopes of regaining some right-sided strain. She was in ICU, moved out to the medical floor. She has been receiving OT, PT and speech therapy throughout her stay. She is progressing slowly with therapy. She needs to be monitored closely for seizure activity with recent craniotomy, pain control, needs close monitoring of electrolyte protocols, proximal muscle weakness, balance deficits, decreased activity tolerance, decreased range of motion, decreased strength. She has got gait disturbance, limited safety awareness. She is at risk for falls. She needs cues for equipment. These are all barriers to her discharge home at this time. She lives at home alone, was independent with ADLs and mobility prior to this. She is currently set up for max assist for ADLs, max assist with her mobility. She would like to be back at her prior level of functioning or better if possible. 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 PAST MEDICAL HISTORY: Significant for hypertension, NC in the past, coronary artery disease, skin cancer, chronic back pain, depression, anxiety, tobacco use. PAST SURGICAL HISTORY: Includes gallbladder surgery, cataracts, appendectomy, tonsillectomy, adenoidectomy, hysterectomy and coronary artery stent placement. ALLERGIES: ISOSORBIDE. SHE IS ALLERGIC TO DEPAKOTE. SHE IS ALLERGIC TO BRILINTA, DOXYCYCLINE AND ISOSORBIDE. CURRENT MEDICATIONS: Include Calmoseptine to apply b.i.d., Lactinex 1 tab HISTORY AND PHYSICAL [id number] KASHIF WINSLOWIA A daily. She is on a multivitamin daily, B12 500 mcg daily, Carafate 1 gram t.i.d. and before every meal, Protonix 40 mg daily, [place] 5/325 one to two tabs every 4 hours p.r.n., Tylenol 650 every 4 hours p.r.n., [place] 2 mg at bedtime, dexamethasone 10 mg b.i.d. tapering dose of this, Klonopin 1 mg at bedtime, baclofen 10 mg at bedtime, atorvastatin 40 mg at bedtime, Nitrostat p.r.n., Tessalon Perles 100 mg t.i.d. p.r.n. and MiraLax daily. HABITS: Does have a history of tobacco use. FAMILY HISTORY: Noncontributory. SOCIAL HISTORY: The patient hopes to return back home and get back to her prior level of functioning. REVIEW OF SYSTEMS: GENERAL: Does complain of some weakness and fatigue. HEENT: Denies cold, cough, or congestion. CARDIOVASCULAR: Denies any chest pain. PHYSICAL EXAMINATION: VITAL SIGNS: Stable, afebrile. GENERAL: An elderly female, in no acute distress upon exam. HEENT: Normocephalic. She does have areas where she has surgical scars that appeared to be well healing. Pupils are equal, round, reactive to light. Extraocular muscles are intact. LUNGS: Clear at this time in upper garcia. She does have decreased breath sounds in the base. HEART: Regular rate and rhythm. ABDOMEN: Soft, benign, and nondistended. Positive bowel sounds times 4. EXTREMITIES: No clubbing, cyanosis or edema. NEUROLOGIC: She does have some noted proximal muscle weakness of her thighs and upper arms. LABORATORY DATA: White count is 24,000, H&H of 8.6 and 27.2 and platelet count was noted to be 295. Her sodium is 127, potassium 3.8, BUN and creatinine of 15 and 0.4 and blood sugar is noted to be 106. 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 The patient has potential to make improvement. We instituted the following multidisciplinary therapies including but not limited to physical, occupational, respiratory, speech, nutritional services, prosthetics and orthotics. Given her complex medical condition and risks for more complications, rehabilitation services cannot be provided at a low level of care such as [facility] facility. PLAN: 1. Admit to [facility] for intensive inpatient therapy to include the following disciplines: A. Physical therapy to improve gait, all transfer skills and bed mobility to a modified independent level. B. Occupational therapy to improve activities of daily living. C. Case management to assist with discharge planning and placement options. D. Nutrition to assist with nutritional needs. E. Rehabilitation nursing to assist in monitoring the patient's underlying HISTORY AND PHYSICAL [id number] FERMÍN WINSLOW medical conditions and to assist with any type of bowel or bladder management. 2. The patient's current medication and medical care will be continued. 3. The patient will be placed on standard fall precautions. 4. We will watch her white count closely. I anticipate this is secondary to her being on dexamethasone. 5. We will watch her H&H closely. We will transfuse if necessary. 6. I will see again in the a.m. TRANSINT:[id number] Voice Confirmation ID: [id number] DOCUMENT ID: [id number] EDUARDO notes whether there has been none or any medical/functional change since admission: - No change since pre-admission screen. EDUARDO attests patient continues to be appropriate for IRF: - Continues to be appropriate. SWETA JONES MD at [id number] CC: [id number] DICTATION DATE: 10/13/19909 JAILKEEPER: 10/13/19 1006 ADM IN [facility] [address] [id number]
--- NOTE | 2019-10-20 16:47 | NUR ---
PATIENT C/O BEING ANXIOUS, GAVE KLONOPIN PER PHYSICIAN ORDER. CALL LIGHT IN REACH. WILL CONTINUE TO MONITOR.
--- NOTE | 2019-10-20 18:07 | NUR ---
RESTING IN BED WITH HOB ELEVATED, EATING A SANDWICH AND DRINKING AN ENSURE. NO C/O PAIN. NO S/S OF ACUTE DISTRESS NOTED. DENIES ANY NEEDS AT THIS TIME. CALL LIGHT IN REACH. WILL CONTINUE TO MONITOR.
--- NOTE | 2019-10-20 18:57 | NUR ---
GREETED PATIENT AND INTRODUCED MYSELF HER NURSE. PATIENT IS RESTING QUIETLY AT THIS TIME. O2 AT 3L IN USE VIA NC. RESPIRATIONS EVEN. NO S/S OF DISTRESS. PT DENIES ANY NEEDS AT THIS TIME. CALL LIGHT IN REACH.
[2019-10-20 20:33] VITALS: BP 145/50
--- NOTE | 2019-10-21 01:23 | NUR ---
PT RESTING QUIETLY WITH EYES CLOSED. RESPIRATIONS EVEN. NO S/S OF DISTRESS. O2 AT 3L IN USE VIA NC. CALL LIGHT IN REACH.
--- NOTE | 2019-10-21 04:06 | NUR ---
PT RESTING QUIETLY WITH EYES CLOSED. RESPIRATIONS EVEN. NO S/S OF DISTRESS. O2 AT 3L IN USE VIA NC. CALL LIGHT IN REACH.
[2019-10-21 08:00] VITALS: BP 121/49
--- NOTE | 2019-10-21 08:00 | NUR ---
PATIENT RESTING IN BED, DENIES ANY NEEDS AT THIS TIME, ASSESSMENT COMPLETE, C/L AND H2O IN REACH.
--- NOTE | 2019-10-21 12:23 | NUR ---
SPOKE WITH FREDO PAEZ, PATIENT POA,TO DISCUSS DISCHARGE PLANS. FREDO AND MRS. WINSLOW WANTS PATIENT TO DISCHARGE TO [place] WHERE HER FAMILY RESIDES. FREDO IS MAKING ARRANGEMENT FOR PATIENT OT HAVE A PCP THERE. FREDO ASK THAT IF ANYONE CALLS TO AQUIRE ANY INFORMATION REGARDING PATIENT THAT THEY CALL HER. PATIENT HAS A WALKER AND A WHEELCHAIR. WILL CONTINUE TO FOLLOW WITH PATIENT.
--- NOTE | 2019-10-21 12:30 | NUR ---
UP IN BED EATING LUNCH, DENIES ANY NEEDS AT THIS TIME, C/L AND H2O IN REACH
--- NOTE | 2019-10-21 16:07 | NUR ---
PT. RESTING IN BED, DENIES ANY NEEDS AT THIS TIME, C/L AND H2O IN REACH.
[2019-10-21 20:00] VITALS: BP 134/42
--- NOTE | 2019-10-21 23:18 | NUR ---
RECEIVED PATIENT, PATIENT IS ALERT BUT SEEMS TO BE FORGETFUL AT TIMES, PATIENT'S RIGHT SIDE IS FLACCID, PATIENT HAS TO BE TURNED EVERY TWO HOURS. INTELLECTUAL PROPERTY LAWYER HER NEEDS KNOWN, TOOK MEDS WITHOUT DIFFICULTY. WILL FOLLOW POC
[2019-10-22 08:00] VITALS: BP 136/36
--- NOTE | 2019-10-22 08:00 | NUR ---
RESTING IN BED WITH EYES CLOSED, NO S/S OF DISTRESS NOTED, C/L AND H2O IN REACH.
[2019-10-22 08:01] LABS: BASOPHILS 0.1 % (0-2); EOSINOPHILS 0.1 % (0-7); HEMATOCRIT 31.7 % (36.0-48.0); HEMOGLOBIN 9.9 g/dL (12-16); LYMPHOCYTES 7.8 % (15-50); MCHC 31.2 g/dL (31.0-37.0); MCV 89.5 fL (80.0-100.0); MEAN PLATELET VOLUME 8.3 fL (7.4-10.4); MONOCYTES 7.5 % (2-11); NEUTROPHILS 81.5 % (40-80); PLATELET COUNT 469 10x3/uL (130-400); RBC 3.54 10x6/uL (4.00-5.40); RDW 17.8 % (11.5-14.5); WBC 15.5 10x3/uL (4.8-10.8)
[2019-10-22 08:17] LABS: CALC OSMOLALITY 276 mosm/kg (275-300); CALCIUM 8.7 mg/dL (8.5-10.1); CARBON DIOXIDE 30.2 mmol/L (21.0-32.0); CHLORIDE - SERUM 99 mmol/L (98-107); CREATININE - SERUM 0.5 mg/dL (0.6-1.3); GLUCOSE 130 mg/dL (74-106); POTASSIUM - SERUM 4.7 mmol/L (3.5-5.1); SODIUM 134 mmol/L (136-145); UREA NITROGEN 31 mg/dL (7-18); eGFR NON AFRICAN AMERICAN > 90 mL/min (90-120)
--- NOTE | 2019-10-22 12:00 | NUR ---
PATIENT UP IN W/C WAITING FOR LUNCH, DENIES ANY NEEDS AT THIS TIME, C/L AND H2O IN REACH
[2019-10-22 20:04] VITALS: BP 148/51
--- NOTE | 2019-10-22 20:20 | NUR ---
PT IN BED ASLEEP, AROUSES EASILY TO VOICE, FALL PRECAUTIONS IN PLACE, FLUIDS/CALL LIGHT WITHIN REACH
--- NOTE | 2019-10-23 08:00 | NUR ---
SHIFT ASSMT COMPLETED.
[2019-10-23 10:30] VITALS: BP 118/41
--- NOTE | 2019-10-23 19:38 | NUR ---
PT UP IN CHAIR NO NEEDS NOTED, FALL PRECAUTIONS IN PLACE, FLUIDS/CALL LIGHT WITHIN REACH
--- NOTE | 2019-10-24 01:53 | NUR ---
PT TOILETED NO OTHER NEED NOTED, FALL PRECAUTIONS IN PLACE, FLUIDS/CALL LIGHT IN REACH
[2019-10-24 03:05] VITALS: BP 129/72
[2019-10-24 08:11] VITALS: BP 106/42
--- NOTE | 2019-10-24 09:41 | NUR ---
PATIENT SITTING UP IN BED TO EAT BREAKFAST. PRN NORCO AND PRN KLONOPIN GIVEN PER PATIENT REQUEST. WILL CONTINUE WITH PLAN OF CARE
--- NOTE | 2019-10-24 13:30 | NUR ---
I have reviewed this patient and I concur with the Shift Assessment completed by the Licensed Practical Nurse today this shift.
--- NOTE | 2019-10-24 20:11 | NUR ---
PT IN BED, REPOSITIONED PT IN BED FOR COMFORT, FLUIDS/CALL LIGHT WITHIN REACH
--- NOTE | 2019-10-24 22:12 | NUR ---
MED PASS COMPLETE, PT REQUESTING PRN NORCO, GIVEN, BLANCA APPLIED TO COCCYX, NO OTHER NEEDS NOTED
[2019-10-25 00:16] VITALS: BP 120/47
--- NOTE | 2019-10-25 08:00 | NUR ---
PATIENT RESTING IN BED WITH EYES CLOSED, NO S/S OF DISTRESS NOTED, C/L AND H2O IN REACH.
[2019-10-25 08:24] VITALS: BP 123/47
--- NOTE | 2019-10-25 12:00 | NUR ---
PT. AWAKE AND ALERT, UP IN W/C WAITING FOR LUNCH, DENIES ANY NEEDS AT THIS TIME, FALL PERCAUTIONS IN PLACE, C/L AND FLUIDS IN REACH.
--- NOTE | 2019-10-25 16:00 | NUR ---
RESTING IN BED WITH EYES CLOSED, NO S/S OF DISTRESS NOTED, C/L AND FLUIDS IN REACH.
--- NOTE | 2019-10-25 20:00 | NUR ---
ALERT RESTING IN BED, REPOSITIONED PER REQUEST, DENIES FUTHER NEEDS AT THIS TIME SEE ASSESSMENT, CALL LIGHT IN REACH
[2019-10-25 20:11] VITALS: BP 116/38
--- NOTE | 2019-10-26 02:12 | NUR ---
EYES CLOSED RESP UNLABORED
--- NOTE | 2019-10-26 06:19 | NUR ---
NO CHANGE IN ASSESSMENT
--- NOTE | 2019-10-26 07:15 | NUR ---
AROUSES EASILY TO VERBAL STIMULI.IS ORIENTED.DENIES NEEDS AT PRESENT.GENERALIZED WEAKNESS PRESENT,RT SIDE THE WEAKEST.02 INTACT VIA NC 3L/MIN.WILL CONTINUE WITH CURRENT PLAN OF CARE,MONITOR FOR CHANGES.CL IN EASY REACH,BED IN LOW POSITION.
[2019-10-26 08:23] VITALS: BP 134/51
--- NOTE | 2019-10-26 08:40 | NUR ---
PO MEDS TAKEN WITHOUT DIFFICULTY.
--- NOTE | 2019-10-26 08:40 | NUR ---
IN TREATMENT ROOM.MEDS TAKEN WITHOUT DIFFICULTY.
--- NOTE | 2019-10-26 14:45 | NUR ---
HYDROCODONE AND KLONAPIN GIVEN FOR C/O ANXIETY AND HEAD AND BACK PAIN .CL IN EASY REACH.
--- NOTE | 2019-10-26 15:15 | NUR ---
RESTING QUIETLY WITH EYES CLOSED,AROUSES EASILY.GOOD RESPONSE TO MEDS GIVEN.
--- NOTE | 2019-10-26 19:19 | NUR ---
GREETED PATIENT AND INTRODUCED MYSELF HER NURSE. REPOSITIONED PATIENT ON RIGHT SIDE FOR COMFORT. O2 AT 3L IN USE VIA NC. RESPIRATIONS EVEN. NO S/S OF DISTRESS. PATIENT DENIES ANY OTHER NEEDS AT THIS TIME. CALL LIGHT IN REACH.
[2019-10-26 23:02] VITALS: BP 122/53
--- NOTE | 2019-10-27 02:23 | NUR ---
PT RESTING QUIETLY WITH EYES CLOSED. RESPIRATIONS EVEN. NO S/S OF DISTRESS. CALL LIGHT IN REACH.
[2019-10-27 07:20] LABS: HEMATOCRIT 31.5 % (36.0-48.0); HEMOGLOBIN 9.5 g/dL (12-16); MCH 26.8 pg (26.0-34.0); MCHC 30.2 g/dL (31.0-37.0); MEAN PLATELET VOLUME 8.5 fL (7.4-10.4); PLATELET COUNT 460 10x3/uL (130-400); RBC 3.54 10x6/uL (4.00-5.40); RDW 17.2 % (11.5-14.5); WBC 19.1 10x3/uL (4.8-10.8)
[2019-10-27 07:26] LABS: CALC OSMOLALITY 276 mosm/kg (275-300); CALCIUM 8.9 mg/dL (8.5-10.1); CARBON DIOXIDE 29.8 mmol/L (21.0-32.0); CHLORIDE - SERUM 100 mmol/L (98-107); CREATININE - SERUM 0.4 mg/dL (0.6-1.3); GLUCOSE 127 mg/dL (74-106); POTASSIUM - SERUM 4.4 mmol/L (3.5-5.1); SODIUM 133 mmol/L (136-145); UREA NITROGEN 37 mg/dL (7-18); eGFR NON AFRICAN AMERICAN > 90 mL/min (90-120)
[2019-10-27 08:00] VITALS: BP 145/55
--- NOTE | 2019-10-27 08:00 | NUR ---
AROUSES EASILY.ASSESSMENT COMPLETED.RT ARM STRONGER TODAY,CAN RAISE RT ARM UP OVER HEAD.ASSISTED WITH REPOSITIONING FOR DIET.WILL CONTINUE WITH CURRENT PLAN OF CARE.CL IN EASY REACH,BED IN LOW POSITION.
--- NOTE | 2019-10-27 09:28 | NUR ---
Nutrition follow-up: Diet: Regular with Ensure TID PO intake ~75% average at meals Labs reviewed +BM Wt: 109# PO intake good at this time RDN following.
[2019-10-27 10:01] LABS: BASOPHILS 1 % (0-2); EOSINOPHILS 2 % (0-7); LYMPHOCYTES 12 % (15-50); MONOCYTES 12 % (2-11); NEUTROPHILS 71 % (40-80); PLATELET ESTIMATE INCREASED
[2019-10-27 10:02] LABS: ROULEAUX OCC
--- NOTE | 2019-10-27 15:38 | NUR ---
CARE TEAM MEETING: PATIENTS RECORDS HAVE BEEN FAXED TO [place]., PATIENT WILL DISCHARGE 10/29/19 WITH FAMILY AND SHE WILL ADMITT TO HOSPICE THERE IN [place]. WILL CONTINUE TO FOLLOW WITH PATIENT.
--- NOTE | 2019-10-27 19:07 | NUR ---
GREETED PATIENT AND INTRODUCED MYSELF HER NURSE. PATIENT IS LAYING IN BED RESTING QUIETLY AT THIS TIME. O2 AT 3L IN USE VIA NC. PT DENIES ANY NEEDS AT THIS TIME. CALL LIGHT IN REACH.
[2019-10-27 21:42] VITALS: BP 152/49
--- NOTE | 2019-10-28 02:15 | NUR ---
PT RESTING QUIETLY WITH EYES CLOSED. RESPIRATIONS EVEN. NO S/S OF DISTRESS. CALL LIGHT IN REACH.
[2019-10-28 08:00] VITALS: BP 124/49
--- NOTE | 2019-10-28 10:11 | NUR ---
PATIENT IN REHAB ROOM. WORKING WITH PHYSICAL THERAPIST. DENIES ANY PAIN/DISC AT THIS TIME.
--- NOTE | 2019-10-28 12:58 | NUR ---
PRN PAIN MEDICATION GIVEN FOR BACK AND BOTTOM PAIN/DISCOMFORT PER PATIENT REQUEST
--- NOTE | 2019-10-28 17:56 | NUR ---
I have reviewed this patient and I concur with the Shift Assessment completed by the Licensed Practical Nurse today this shift.
--- NOTE | 2019-10-28 19:08 | NUR ---
GREETED PATIENT AND INTRODUCED MYSELF HER NURSE. PATIENT HAS BEEN SCREW MACHINE HAND LIGHT CONSTANTLY SINCE ARRIVING ON UNIT. PATIENT CONFUSED AT THIS TIME. REORIENTATED PATIENT TO TIME, STAFF AND SURROUNDINGS. O2 AT 3L VIA NC. RESPIRATIONS EVEN. NO S/S OF DISTRESS. CALL LIGHT IN REACH.
[2019-10-28 20:54] VITALS: BP 126/54
--- NOTE | 2019-10-29 01:48 | NUR ---
PT RESTING QUIETLY WITH EYES CLOSED. RESPIRATIONS EVEN. NO S/S OF DISTRESS. CALL LIGHT IN REACH.
--- NOTE | 2019-10-29 03:52 | NUR ---
PT RESTING QUIETLY WITH EYES CLOSED. RESPIRATIONS EVEN. NO S/S OF DISTRESS. O2 AT 3L IN USE VIA NC. CALL LIGHT IN REACH.
--- NOTE | 2019-10-29 07:57 | NUR ---
RESTING IN BED WITH EYES CLOSED, NO S/S OF DISTRESS NOTED, C/L AND FLUIDS IN REACH.
[2019-10-29 08:18] VITALS: BP 133/47
--- NOTE | 2019-10-29 11:24 | NUR ---
PATIENT DISCHARGE HOME WITH FAMILY AND IS MOVING TO [place] WITH FAMILY AND WILL ADMITT TO [facility]. STEVEN SIGNED, IMM SERVED AND EXPLAINED , ONE GIVEN TO PATIENT AND FILED IN CHART. JESSICA IS PROVIDING O2 FOR PATIENT. DISCHARGE INSTRUCTIONS REVIEWD WITH PATIENT AND FAMILY PER PRIMARY NURSE.
--- NOTE | 2019-10-29 12:07 | NUR ---
PATIENT D/C IN W/C TO HOME WITH DAUGHTER IN [place], REVIEWED MEDICATIONS AND GAVE PAIN MEDICATION PERSCRIPTION. DENIED ANY MEDICATION REFILLS NEEDED.
== END 2019-10-29 12:09 | disposition home or self-care (01) | DRG 80 ==
LOC: D.REHAB 18:50
PROVIDERS: ADMIT Emergency Medicine; ATTEND Emergency Medicine
DX: G93.6 Cerebral edema (principal); J18.9 Pneumonia, unspecified organism; K29.01 Acute gastritis with bleeding; E43 Unspecified severe protein-calorie malnutrition; C79.31 Secondary malignant neoplasm of brain; D62 Acute posthemorrhagic anemia; F17.203 Nicotine dependence unspecified, with withdrawal; E78.5 Hyperlipidemia, unspecified; D50.9 Iron deficiency anemia, unspecified; N28.89 Other specified disorders of kidney and ureter; F41.8 Other specified anxiety disorders; Z68.22 Body mass index [BMI] 22.0-22.9, adult